=== PATIENT | female | born 1965 | race Caucasian/White ===

== ENCOUNTER 2017-03-13 13:32 | Emergency (ER) | payer MEDICARE ==
[2017-03-13 14:15] LABS: BASOPHIL % 0.1 % (0.0-0.4); Eosinophil % 0.5 % (0.00-5.0); Lymphocytes % 23.2 % (24.0-44.0); Mean Cell Volume 89.1 fl (78-100); Mean Corpuscular Hemoglobin 29.8 pg (26-32); Mean Platelet Volume 10.6 fl (6-9.5); Monocytes % 9.2 % (0.0-12.0); Platelet Count 371 K/mm3 (150-450); Red Blood Count 4.76 M/mm3 (4.1-5.4); Red Cell Distribution Width 13.6 % (11.5-14.0); White Blood Count 12.1 K/mm3 (4.0-10.5)
[2017-03-13] MEDS ORDERED: Vistaril 50 MG/ML IM ONE ×2 (14:16→14:48)
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
[2017-03-13 14:22] LABS: ALBUMIN 4.5 g/dL (3.4-5.0); ANION GAP 18.4 MEQ/L (5-15); BILIRUBIN,TOTAL 0.5 mg/dL (0.2-1.0); MAGNESIUM 2.1 mg/dL (1.8-2.4); Potassium 3.2 mEq/L (3.5-5.1); Total Protein 8.3 gm/dL (6.4-8.2)
[2017-03-13] MEDS ORDERED: Lactated Ringers 1,000 ML IV SCH (14:30)
[2017-03-13] MEDS ORDERED: POTASSIUM CHLORIDE 20 mEq IN WATER 100ML 100 ML IV ONE ×2 (14:36→14:48)
--- NOTE | 2017-03-13 14:43 | XRAY ---
Indication: Numbness and tremors. Hypoglycemia. Multiple contiguous axial images obtained through the head without contrast. Comparison: January 26, 2016. There are again bilateral cochlear implants producing extreme beam artifact limiting these levels. Remaining visualized brain parenchyma is negative for acute intracranial hemorrhage, abnormal extra-axial fluid collection, or mass effect. Fourth ventricle is midline without hydrocephalus. Bony calvarium intact. Visualized paranasal sinuses and mastoid air cells are clear. Impression: 1. Again limited exam due to beam artifact from bilateral cochlear implants. 2. No gross new/acute intracranial abnormalities. CTDI 60.80
--- NOTE | 2017-03-13 14:47 | XRAY ---
Indication: Numbness and tremors. Hyperglycemia. Multiple contiguous axial images obtained through the cervical spine. Sagittal and coronal reformatted images obtained. Comparison: None Axial images are negative for acute fracture, suspicious bony lesions, or spinal canal stenosis. Minimal C5-C7 degenerative endplate spurring. Sagittal and coronal reformatted images demonstrates slight lordotic reversal, positional versus paraspinal muscular spasm. Minimal C6-C7 disc space narrowing. No acute compression fracture, subluxation, or jumped facet. Normal-appearing craniocervical junction. Visualized noncontrasted soft tissues including lung apices are unremarkable. CT head reported separately. Impression: 1. Lordotic reversal, positional versus paraspinal spasm. 2. Minimal C5-C7 degenerative disc disease. 3. Remaining CT cervical spine is negative. CT DI 63.87
[2017-03-13] MEDS ORDERED: Lactated Ringers 1,000 ML IV ONE (14:48)
[2017-03-13 15:58] VITALS: PULSE 81
[2017-03-13 15:59] VITALS: O2SAT 97
[2017-03-13 17:09] VITALS: BP 110/70
== END 2017-03-13 17:08 | disposition home or self-care (01) ==
LOC: ED 13:32
DX: E87.6 Hypokalemia (principal); R25.1 Tremor, unspecified; Z79.899 Other long term (current) drug therapy; R53.83 Other fatigue; M79.1 Myalgia
CPT/HCPCS: 36415; 70450; 72125; 80053; 83735; 85025; 93005; 93041; 96360; 96365; 96374; 99284; J3410; J3480

== ENCOUNTER 2018-06-13 09:34 | Day surgery (SDC) | payer MEDICARE ==
[2018-06-13] MEDS ORDERED: Depo-Medrol 40 MG/ML IM ONE (09:35)
[2018-06-13] MEDS ORDERED: LIDOCAINE HCL 2% 100 MG/5 ML IJ ONE (09:35)
[2018-06-13] MEDS ORDERED: DIPRIVAN 200 MG/20 ML IV ONE (09:35)
[2018-06-13] MEDS ORDERED: Lactated Ringers 1,000 ML IV ONE (10:09)
--- NOTE | 2018-06-13 13:14 | XRAY ---
Indication: Right L4-S1 MBB. Intraoperative fluoroscopy was provided for 15 seconds. Single digital spot image submitted for interpretation demonstrates posterior spinal needle tips projecting over the expected course of the right L4, L5, and S1 nerve roots. Correlate with intraoperative findings/report.
--- NOTE | 2018-06-13 13:35 | XRAY ---
15 seconds fluoroscopy time in surgery for left side L4-S1 injection.
== END 2018-06-13 11:25 | disposition home or self-care (01) ==
LOC: SDC-PAIN 09:34
PROVIDERS: ATTEND Psychiatry & Neurology Pain Medicine
DX: M54.5 Low back pain (principal); M47.816 Spondylosis without myelopathy or radiculopathy, lumbar region
CPT/HCPCS: 64493; 64494; 72100; 76000; J1030; J2704

== ENCOUNTER 2018-07-25 10:08 | Day surgery (SDC) | payer MEDICARE ==
[2018-07-25] MEDS ORDERED: Depo-Medrol 40 MG/ML IM ONE (10:09)
[2018-07-25] MEDS ORDERED: Marcaine 0.5% SDV 10 ML IJ ONE (10:09)
[2018-07-25] MEDS ORDERED: DIPRIVAN 200 MG/20 ML IV ONE (10:09)
[2018-07-25] MEDS ORDERED: LIDOCAINE HCL 2% 100 MG/5 ML IJ ONE (10:09)
[2018-07-25] MEDS ORDERED: Lactated Ringers 1,000 ML IV ONE (12:39)
--- NOTE | 2018-07-25 13:00 | XRAY ---
Indication: Bilateral L4-S1 MBB. Intraoperative fluoroscopy was provided for 6 seconds. Single digital spot image submitted for interpretation demonstrates posterior spinal needle tips along the expected course of the left and right L4-S1 nerve roots. Correlate with intraoperative findings/report.
--- NOTE | 2018-07-25 13:10 | XRAY ---
6 seconds fluoroscopy time in surgery for L4-S1 MBB.
== END 2018-07-25 12:25 | disposition home or self-care (01) ==
LOC: SDC-PAIN 10:08
PROVIDERS: ATTEND Psychiatry & Neurology Pain Medicine
DX: M47.817 Spondylosis without myelopathy or radiculopathy, lumbosacral region (principal)
CPT/HCPCS: 64493; 64494; 72020; 77003; J1030; J2704

== ENCOUNTER 2018-08-29 09:29 | Day surgery (SDC) | payer MEDICARE ==
[2018-08-29] MEDS ORDERED: Xylocaine 1% Vial 30 ML PF IJ ONE (09:30)
[2018-08-29] MEDS ORDERED: Depo-Medrol 40 MG/ML IM ONE (09:30)
[2018-08-29] MEDS ORDERED: Marcaine 0.5% SDV 10 ML IJ ONE (09:30)
[2018-08-29] MEDS ORDERED: DIPRIVAN 200 MG/20 ML IV ONE (09:30)
--- NOTE | 2018-08-29 12:32 | XRAY ---
Indication: Right L4-S1 RFA. Intraoperative fluoroscopy was provided for 29 seconds. 2 digital spot images submitted for interpretation demonstrates posterior spinal needle tips along the expected course of the right L4-S1 nerve roots. Correlate with intraoperative findings/report.
--- NOTE | 2018-08-29 12:38 | XRAY ---
29 seconds fluoroscopy time in surgery for right L4-S1 RFA.
[2018-08-29] MEDS ORDERED: Lactated Ringers 1,000 ML IV ONE (14:47)
== END 2018-08-29 11:55 | disposition home or self-care (01) ==
LOC: SDC-PAIN 09:29
PROVIDERS: ATTEND Psychiatry & Neurology Pain Medicine
DX: M47.817 Spondylosis without myelopathy or radiculopathy, lumbosacral region (principal)
CPT/HCPCS: 64635; 64636; 72020; 77003; J1030; J2001; J2704

== ENCOUNTER 2018-10-10 11:01 | Day surgery (SDC) | payer MEDICARE ==
[2018-10-10] MEDS ORDERED: Depo-Medrol 40 MG/ML IM ONE (11:02)
[2018-10-10] MEDS ORDERED: DIPRIVAN 200 MG/20 ML IV ONE (11:02)
[2018-10-10] MEDS ORDERED: Marcaine 0.5% SDV 10 ML IJ ONE (11:02)
[2018-10-10] MEDS ORDERED: VERSED 5 MG/5 ML ONE (12:57)
[2018-10-10] MEDS ORDERED: TORAdol 30 mg Injection ONE (14:51)
[2018-10-10] MEDS ORDERED: Lactated Ringers 1,000 ML IV ONE (14:59)
--- NOTE | 2018-10-10 16:01 | XRAY ---
Indication: Right greater trochanter and intra-articular injection. Intraoperative fluoroscopy was provided for 23 seconds. 2 digital spot images submitted for interpretation demonstrates needle tip just lateral to the femur head and lateral to the greater trochanter. Small amount of contrast injected for needle tip placement. Correlate with intraoperative findings/report.
--- NOTE | 2018-10-10 16:05 | XRAY ---
23 seconds fluoroscopy time in surgery for right greater trochanter and intra-articular hip joint injections.
== END 2018-10-10 15:07 | disposition home or self-care (01) ==
LOC: SDC-PAIN 11:01
PROVIDERS: ATTEND Psychiatry & Neurology Pain Medicine
DX: M16.10 Unilateral primary osteoarthritis, unspecified hip (principal); Z79.899 Other long term (current) drug therapy
CPT/HCPCS: 20610; 73501; 77002; J1030; J1885; J2250; J2704; Q9966

== ENCOUNTER 2018-11-07 09:17 | Day surgery (SDC) | payer MEDICARE ==
[~2018-11-07 09:17] MED LIST: Lactated Ringers 1,000 ML IV ONE
[2018-11-07] MEDS ORDERED: Depo-Medrol 40 MG/ML IM ONE (09:18)
[2018-11-07] MEDS ORDERED: Xylocaine 1% Vial 30 ML PF IJ ONE (09:18)
[2018-11-07] MEDS ORDERED: Marcaine 0.5% SDV 10 ML IJ ONE (09:18)
[2018-11-07] MEDS ORDERED: DIPRIVAN 200 MG/20 ML IV ONE (09:18)
--- NOTE | 2018-11-07 12:13 | XRAY ---
Indication: Right SI joint injection. Intraoperative fluoroscopy was provided for 8 seconds. 2 digital spot images submitted for interpretation demonstrates posterior needle tip projecting over the inferior right SI joint. Correlate with intraoperative findings/report.
--- NOTE | 2018-11-07 12:16 | XRAY ---
8 seconds fluoroscopy time in surgery for right SI joint injection.
== END 2018-11-07 11:43 | disposition home or self-care (01) ==
LOC: SDC-PAIN 09:17
PROVIDERS: ATTEND Psychiatry & Neurology Pain Medicine
DX: M46.1 Sacroiliitis, not elsewhere classified (principal); Z79.899 Other long term (current) drug therapy
CPT/HCPCS: 72020; 77002; G0260; 27096; J1030; J2001; J2704

== ENCOUNTER 2019-02-06 09:44 | Day surgery (SDC) | payer MEDICARE ==
[2019-02-06] MEDS ORDERED: Depo-Medrol 40 MG/ML IM ONE (09:45)
[2019-02-06] MEDS ORDERED: Marcaine 0.5% SDV 10 ML IJ ONE (09:45)
[2019-02-06] MEDS ORDERED: Ketamine HCl 50 MG/ML IV ONE (09:45)
[2019-02-06] MEDS ORDERED: DIPRIVAN 200 MG/20 ML IV ONE (09:45)
[2019-02-06] MEDS ORDERED: Lactated Ringers 1,000 ML IV ONE (13:07)
--- NOTE | 2019-02-07 14:18 | XRAY ---
Indication: Right trochanter and intra-articular injections. Intraoperative fluoroscopy was provided for 21 seconds. 2 digital spot images submitted for interpretation demonstrates needle tips just lateral to the right femur neck and greater trochanter. Small amount of contrast injected for both needle tip placement. Correlate with intraoperative findings/report.
--- NOTE | 2019-02-07 14:20 | XRAY ---
21 seconds fluoroscopy time in surgery for right intra-articular and greater trochanter injections.
== END 2019-02-06 10:55 | disposition home or self-care (01) ==
LOC: SDC-PAIN 09:44
PROVIDERS: ATTEND Psychiatry & Neurology Pain Medicine
DX: M16.11 Unilateral primary osteoarthritis, right hip (principal); M70.61 Trochanteric bursitis, right hip; I10 Essential (primary) hypertension; E78.00 Pure hypercholesterolemia, unspecified; F41.8 Other specified anxiety disorders
CPT/HCPCS: 20610; 73501; 77002; J1030; J2704; Q9966

== ENCOUNTER 2019-03-06 07:50 | Day surgery (SDC) | payer MEDICARE ==
[2019-03-06] MEDS ORDERED: Depo-Medrol 40 MG/ML IM ONE (07:51)
[2019-03-06] MEDS ORDERED: Marcaine 0.5% SDV 10 ML IJ ONE (07:51)
[2019-03-06] MEDS ORDERED: Xylocaine 1% Vial 30 ML PF IJ ONE (07:51)
[2019-03-06] MEDS ORDERED: DIPRIVAN 200 MG/20 ML IV ONE (09:33)
[2019-03-06] MEDS ORDERED: Ketamine HCl 50 MG/ML ONE (09:34)
--- NOTE | 2019-03-06 10:41 | XRAY ---
Indication: Left L4-S1 RFA. Intraoperative fluoroscopy was provided for 21 seconds. 2 digital spot images submitted for interpretation demonstrates posterior needle tips projecting over the expected course of the left L4-S1 nerve roots. Correlate with intraoperative findings/report.
--- NOTE | 2019-03-06 11:29 | XRAY ---
21 seconds fluoroscopy time in surgery for left L4-S1 RFA.
[2019-03-06] MEDS ORDERED: Lactated Ringers 1,000 ML IV ONE (13:26)
== END 2019-03-06 10:12 | disposition home or self-care (01) ==
LOC: SDC-PAIN 07:50
PROVIDERS: ATTEND Psychiatry & Neurology Pain Medicine
DX: M47.816 Spondylosis without myelopathy or radiculopathy, lumbar region (principal); I10 Essential (primary) hypertension; K21.9 Gastro-esophageal reflux disease without esophagitis; E78.00 Pure hypercholesterolemia, unspecified; F41.8 Other specified anxiety disorders
CPT/HCPCS: 64635; 64636; 72100; 77002; J1030; J2001; J2704

== ENCOUNTER 2019-04-10 12:03 | Day surgery (SDC) | payer MEDICARE ==
[2019-04-10] MEDS ORDERED: Depo-Medrol 40 MG/ML IM ONE (12:04)
[2019-04-10] MEDS ORDERED: Sodium Chloride 0.9(Preservative Free) 10 ML IJ ONE (12:04)
[2019-04-10] MEDS ORDERED: DIPRIVAN 200 MG/20 ML IV ONE (12:59)
[2019-04-10] MEDS ORDERED: Ketamine HCl 50 MG/ML ONE (12:59)
--- NOTE | 2019-04-10 15:00 | XRAY ---
Indication: Right L4-S1 PERLA. Intraoperative fluoroscopy was provided for 26 seconds. 3 digital spot images submitted for interpretation demonstrates posterior needle tips projecting over the expected course of the right L4 and L5 nerve roots. Small amount of contrast injected for needle tip placement. Correlate with intraoperative findings/report.
--- NOTE | 2019-04-10 15:17 | XRAY ---
26 seconds fluoroscopy time in surgery for right L4-S1 transforaminal PERLA.
[2019-04-10] MEDS ORDERED: Lactated Ringers 1,000 ML IV ONE (16:46)
== END 2019-04-10 13:32 | disposition home or self-care (01) ==
LOC: SDC-PAIN 12:03
PROVIDERS: ATTEND Psychiatry & Neurology Pain Medicine
DX: M54.16 Radiculopathy, lumbar region (principal); I10 Essential (primary) hypertension; E78.00 Pure hypercholesterolemia, unspecified; F41.8 Other specified anxiety disorders; Z79.899 Other long term (current) drug therapy
CPT/HCPCS: 64483; 64484; 72100; 77003; J1030; J2704; Q9966

== ENCOUNTER 2019-07-03 12:34 | Day surgery (SDC) | payer MEDICARE ==
[2019-07-03] MEDS ORDERED: Depo-Medrol 40 MG/ML IM ONE (12:35)
[2019-07-03] MEDS ORDERED: Marcaine 0.5% SDV 10 ML IJ ONE (12:35)
[2019-07-03 13:23] LABS: Absolute Neutrophil Ct (ANC) 4.61 (1.4-6.9); BASOPHIL % 0.2 % (0.0-0.4); Basophil (Absolute #) 0.01 (0-0.4); Eosinophil % 0.8 % (0.00-5.0); Eosinophil (Absolute #) 0.05 (0-0.5); Hematocrit 39.9 % (35-47); Hemoglobin 13.5 gm/dl (12.0-16.0); Lymphocyte (Absolute #) 1.46 (1.0-4.6); Lymphocytes % 22.1 % (24.0-44.0); Mean Cell Volume 89.1 fl (78-100); Mean Corpuscular Hemoglobin 30.1 pg (26-32); Mean Corpuscular Hgb Concent. 33.8 g/dl (32-36); Mean Platelet Volume 10.6 fl (6-9.5); Monocyte (Absolute #) 0.48 (0.0-1.3); Monocytes % 7.3 % (0.0-12.0); Neutrophil % 69.6 % (36.0-66.0); Platelet Count 280 K/mm3 (150-450); Red Blood Count 4.48 M/mm3 (4.1-5.4); Red Cell Distribution Width 13.8 % (11.5-14.0); White Blood Count 6.6 K/mm3 (4.0-10.5)
[2019-07-03] MEDS ORDERED: Ketamine HCl 50 MG/ML ONE (13:49)
[2019-07-03] MEDS ORDERED: DIPRIVAN 200 MG/20 ML IV ONE (13:49)
[2019-07-03 14:16] LABS: ALBUMIN 4.8 g/dL (3.5-5.0); ANION GAP 16.2 MEQ/L (5-15); BILIRUBIN,TOTAL 0.5 mg/dL (0.2-1.3); Calcium 10.1 mg/dL (8.4-10.2); Creatinine 1 1.04 mg/dL (0.52-1.04); Potassium 4.3 mmol/L (3.5-5.1); Risk Ratio 4.4; Total Protein 7.9 g/dL (6.3-8.2)
[2019-07-03] MEDS ORDERED: Lactated Ringers 1,000 ML IV ONE (14:35)
--- NOTE | 2019-07-03 16:01 | XRAY ---
Indication: Right SI joint injection. Intraoperative fluoroscopy was provided for 16 seconds. 2 digital spot images submitted for interpretation demonstrates posterior needle tip projecting over the inferior right SI joint. Correlate with intraoperative findings/report.
--- NOTE | 2019-07-03 16:08 | XRAY ---
16 seconds fluoroscopy time in surgery for right SI joint injection.
== END 2019-07-03 14:17 | disposition home or self-care (01) ==
LOC: SDC-PAIN 12:34
PROVIDERS: ATTEND Psychiatry & Neurology Pain Medicine
DX: M46.1 Sacroiliitis, not elsewhere classified (principal); I10 Essential (primary) hypertension; E78.00 Pure hypercholesterolemia, unspecified; Z79.899 Other long term (current) drug therapy; F41.8 Other specified anxiety disorders
CPT/HCPCS: 36415; 72020; 77002; 80053; 80061; 82306; 83721; 85025; G0260; 27096; J1030; J2704

== ENCOUNTER 2019-09-18 14:36 | Day surgery (SDC) | payer MEDICARE ==
[2019-09-18] MEDS ORDERED: Sodium Chloride 0.9(Preservative Free) 10 ML IJ ONE (14:37)
[2019-09-18] MEDS ORDERED: Marcaine 0.5% SDV 10 ML IJ ONE (14:37)
[2019-09-18] MEDS ORDERED: Depo-Medrol 40 MG/ML IM ONE (14:37)
[2019-09-18] MEDS ORDERED: Ketamine HCl 50 MG/ML ONE (15:25)
[2019-09-18] MEDS ORDERED: DIPRIVAN 200 MG/20 ML IV ONE ×2 (15:25→15:35)
[2019-09-18] MEDS ORDERED: TORAdol 30 mg Injection ONE (15:49)
[2019-09-18] MEDS ORDERED: Lactated Ringers 1,000 ML IV ONE (15:57)
--- NOTE | 2019-09-18 17:01 | XRAY ---
Indication: Right L3-S1 transforaminal PERLA. Intraoperative fluoroscopy was provided for 16 seconds. 2 digital spot images submitted for interpretation demonstrates posterior needle tips projecting over the expected course of the right L3 and L4 nerve roots. Small amount of contrast injected for needle tip placement. Correlate with intraoperative findings/report.
--- NOTE | 2019-09-18 17:05 | XRAY ---
Indication: Right trochanter bursa injection. Intraoperative fluoroscopy was provided for 11 seconds. Single digital spot image submitted for interpretation demonstrates needle tip just adjacent to the right greater trochanter. Small amount of contrast injected for needle tip placement. Correlate with intraoperative findings/report.
--- NOTE | 2019-09-18 17:08 | XRAY ---
16 seconds fluoroscopy time in surgery for right L4-L5 transforaminal PERLA.
--- NOTE | 2019-09-18 17:08 | XRAY ---
11 seconds fluoroscopy time in surgery for right greater trochanter bursa injection.
== END 2019-09-18 16:05 | disposition home or self-care (01) ==
LOC: SDC-PAIN 14:36
PROVIDERS: ATTEND Psychiatry & Neurology Pain Medicine
DX: M54.16 Radiculopathy, lumbar region (principal); Z79.899 Other long term (current) drug therapy; I10 Essential (primary) hypertension; E78.00 Pure hypercholesterolemia, unspecified; F41.8 Other specified anxiety disorders
CPT/HCPCS: 20610; 64483; 64484; 72100; 73501; 77002; 77003; J1030; J1885; J2704; Q9966

== ENCOUNTER 2019-10-09 10:34 | Day surgery (SDC) | payer MEDICARE ==
[2019-10-09] MEDS ORDERED: Xylocaine 1% Vial 30 ML PF IJ ONE (10:35)
[2019-10-09] MEDS ORDERED: Decadron 4 MG INJ IV ONE (10:35)
[2019-10-09] MEDS ORDERED: DIPRIVAN 200 MG/20 ML IV ONE (11:15)
[2019-10-09] MEDS ORDERED: Ketamine HCl 50 MG/ML ONE (11:15)
--- NOTE | 2019-10-09 13:11 | XRAY ---
Indication: Right piriformis injection. Intraoperative fluoroscopy was provided for 16 seconds. Single digital spot image submitted for interpretation demonstrates posterior needle tip projecting over the expected right piriformis muscle. Small amount of contrast injected for needle tip placement. Correlate with intraoperative findings/report.
--- NOTE | 2019-10-09 13:13 | XRAY ---
16 seconds fluoroscopy time in surgery for right piriformis muscle injection.
[2019-10-09] MEDS ORDERED: Lactated Ringers 1,000 ML IV ONE (15:40)
== END 2019-10-09 11:40 | disposition home or self-care (01) ==
LOC: SDC-PAIN 10:34
PROVIDERS: ATTEND Psychiatry & Neurology Pain Medicine
DX: M79.18 Myalgia, other site (principal); M54.31 Sciatica, right side; I10 Essential (primary) hypertension; E78.00 Pure hypercholesterolemia, unspecified; F41.8 Other specified anxiety disorders
CPT/HCPCS: 20552; 72020; 77002; J1100; J2001; J2704; Q9966

== ENCOUNTER 2020-02-26 12:30 | Day surgery (SDC) | payer MEDICARE ==
[2020-02-26] MEDS ORDERED: Xylocaine 1% Vial 30 ML PF IJ ONE (12:31)
[2020-02-26] MEDS ORDERED: Sodium Chloride 0.9% 10 ML FLUSH Syringe IJ ONE (12:31)
[2020-02-26] MEDS ORDERED: Depo-Medrol 40 MG/ML IM ONE (12:31)
[2020-02-26] MEDS ORDERED: Versed 2 MG/2 ML Injection ONE ×2 (13:31→13:54)
[2020-02-26] MEDS ORDERED: DIPRIVAN 200 MG/20 ML IV ONE (13:54)
[2020-02-26] MEDS ORDERED: Lactated Ringers 1,000 ML IV ONE (14:55)
--- NOTE | 2020-02-26 14:59 | XRAY ---
Indication: Lumbar PERLA. Intraoperative fluoroscopy was provided for 18 seconds. 2 digital spot images submitted for interpretation demonstrates midline posterior needle tip projecting just posterior to the lumbosacral junction interspace. Small amount of contrast injected for needle tip placement. Correlate with intraoperative findings/report.
--- NOTE | 2020-02-26 16:52 | XRAY ---
18 seconds of fluoroscopy was used in surgery for a lumbar PERLA.
== END 2020-02-26 14:25 | disposition home or self-care (01) ==
LOC: SDC-PAIN 12:30
PROVIDERS: ATTEND Psychiatry & Neurology Pain Medicine
DX: M54.16 Radiculopathy, lumbar region (principal); I10 Essential (primary) hypertension; E78.00 Pure hypercholesterolemia, unspecified; Z79.899 Other long term (current) drug therapy
CPT/HCPCS: 62321; 72100; 77003; J1030; J2001; J2250; J2704; Q9966

== ENCOUNTER 2020-03-25 08:05 | Day surgery (SDC) | payer MEDICARE ==
[2020-03-25] MEDS ORDERED: Depo-Medrol 40 MG/ML IM ONE (08:06)
[2020-03-25] MEDS ORDERED: Marcaine 0.5% SDV 10 ML IJ ONE (08:06)
[2020-03-25] MEDS ORDERED: Xylocaine 1% Vial 30 ML PF IJ ONE (08:06)
[2020-03-25] MEDS ORDERED: DIPRIVAN 200 MG/20 ML IV ONE (08:31)
[2020-03-25] MEDS ORDERED: Ketamine HCl 50 MG/ML ONE (08:33)
--- NOTE | 2020-03-25 11:10 | XRAY ---
Indication: Right hip intra-articular and bursa injection. Intraoperative fluoroscopy was provided for 33 seconds. 2 digital spot images submitted for interpretation demonstrates needle tip projecting just lateral to the right femur neck and second needle tip lateral to greater trochanter. Small amount of contrast injected for both needle tip placement. Correlate with intraoperative findings/report.
--- NOTE | 2020-03-25 11:41 | XRAY ---
33 seconds fluoroscopy time in surgery for right hip injections.
[2020-03-25] MEDS ORDERED: Lactated Ringers 1,000 ML IV ONE (15:47)
== END 2020-03-25 09:36 | disposition home or self-care (01) ==
LOC: SDC-PAIN 08:05
PROVIDERS: ATTEND Psychiatry & Neurology Pain Medicine
DX: M70.61 Trochanteric bursitis, right hip (principal); M16.11 Unilateral primary osteoarthritis, right hip; I10 Essential (primary) hypertension; E78.00 Pure hypercholesterolemia, unspecified; F41.8 Other specified anxiety disorders; Z79.899 Other long term (current) drug therapy
CPT/HCPCS: 20610; 73502; 77002; J1030; J2001; J2704; Q9966

== ENCOUNTER 2020-05-06 11:34 | Day surgery (SDC) | payer MEDICARE ==
[2020-05-06] MEDS ORDERED: Decadron 4 MG INJ IV ONE (11:35)
[2020-05-06] MEDS ORDERED: LIDOCAINE HCL 2% 100 MG/5 ML IJ ONE (11:35)
[2020-05-06] MEDS ORDERED: Ketamine HCl 50 MG/ML ONE (12:35)
[2020-05-06] MEDS ORDERED: Versed 2 MG/2 ML Injection ONE (12:35)
[2020-05-06] MEDS ORDERED: DIPRIVAN 200 MG/20 ML IV ONE (12:35)
[2020-05-06] MEDS ORDERED: MORPHINE SULFATE 10 MG/ML ONE (13:19)
[2020-05-06] MEDS ORDERED: TORAdol 30 mg Injection ONE (13:28)
[2020-05-06] MEDS ORDERED: Lactated Ringers 1,000 ML IV ONE (15:25)
--- NOTE | 2020-05-06 15:51 | XRAY ---
Indication: Right C2-C4 MBB. Intraoperative fluoroscopy was provided for 26 seconds. 2 digital spot images submitted for interpretation demonstrates posterior needle tips projecting over the expected right C2-C4 nerve roots. Correlate with intraoperative findings/report.
--- NOTE | 2020-05-06 17:27 | XRAY ---
26 seconds of fluoroscopy was used in surgery for a right C2-C3 and C3-C4 MBB.
== END 2020-05-06 13:28 | disposition home or self-care (01) ==
LOC: SDC-PAIN 11:34
PROVIDERS: ATTEND Psychiatry & Neurology Pain Medicine
DX: M47.812 Spondylosis without myelopathy or radiculopathy, cervical region (principal); I10 Essential (primary) hypertension; E78.00 Pure hypercholesterolemia, unspecified; F41.8 Other specified anxiety disorders; Z79.899 Other long term (current) drug therapy
CPT/HCPCS: 64490; 64491; 72020; 77002; J1100; J1885; J2250; J2270; J2704

== ENCOUNTER 2020-07-01 09:19 | Day surgery (SDC) | payer MEDICARE ==
[~2020-07-01 09:19] MED LIST changes: +DIPRIVAN 200 MG/20 ML IV ONE; +Ketamine HCl 50 MG/ML ONE; -Lactated Ringers 1,000 ML IV ONE
[2020-07-01] MEDS ORDERED: Depo-Medrol 40 MG/ML IM ONE (09:20)
[2020-07-01] MEDS ORDERED: Sodium Chloride 0.9(Preservative Free) 10 ML IJ ONE (09:20)
[2020-07-01] MEDS ORDERED: BUPIVACAINE 0.5% VIAL IJ ONE (09:20)
[2020-07-01] MEDS ORDERED: TORAdol 30 mg Injection ONE (11:16)
--- NOTE | 2020-07-01 12:12 | XRAY ---
Indication: Right L3-L5 transforaminal PERLA. Intraoperative fluoroscopy was provided for 31 seconds. 4 digital spot images submitted for interpretation demonstrates posterior needle tips projecting over the expected right L4 and L5 nerve roots. Small amount of contrast injected for needle tip placement. Correlate with intraoperative findings/report.
--- NOTE | 2020-07-01 12:24 | XRAY ---
Indication: Right greater trochanter bursa injection. Intraoperative fluoroscopy was provided for 17 seconds. Single digital spot image obtained prone demonstrates needle tip just lateral to the right greater trochanter. Small amount of contrast injected for needle tip placement. Correlate with intraoperative findings/report.
[2020-07-01] MEDS ORDERED: Lactated Ringers 1,000 ML IV ONE (13:48)
--- NOTE | 2020-07-01 16:55 | XRAY ---
31 seconds of fluoroscopy was used in surgery for a right L3-L4, L4-L5 transforaminal PERLA.
--- NOTE | 2020-07-01 17:05 | XRAY ---
17 seconds of fluoroscopy was used in surgery for a right greater trochanteric bursa injection.
== END 2020-07-01 11:22 | disposition home or self-care (01) ==
LOC: SDC-PAIN 09:19
PROVIDERS: ATTEND Psychiatry & Neurology Pain Medicine
DX: M54.16 Radiculopathy, lumbar region (principal); M70.61 Trochanteric bursitis, right hip; E78.00 Pure hypercholesterolemia, unspecified; I10 Essential (primary) hypertension; F41.8 Other specified anxiety disorders; K21.9 Gastro-esophageal reflux disease without esophagitis; Z79.899 Other long term (current) drug therapy
CPT/HCPCS: 20610; 64483; 64484; 72100; 73501; 77002; 77003; J1030; J1885; J2704; Q9966

== ENCOUNTER 2020-09-30 10:12 | Day surgery (SDC) | payer MEDICARE ==
[2020-09-30] MEDS ORDERED: Depo-Medrol 40 MG/ML IM ONE (10:13)
[2020-09-30] MEDS ORDERED: BUPIVACAINE 0.5% VIAL IJ ONE (10:13)
[2020-09-30] MEDS ORDERED: DIPRIVAN 200 MG/20 ML IV ONE (11:40)
[2020-09-30] MEDS ORDERED: Ketamine HCl 50 MG/ML ONE (11:40)
--- NOTE | 2020-09-30 13:26 | XRAY ---
Indication: Right greater trochanter bursa injection. Intraoperative fluoroscopy was provided for 9 seconds. Single digital spot image obtained prone submitted for interpretation demonstrates needle tip projecting just lateral to the right greater trochanter. Small amount of contrast injected for needle tip placement. Correlate with intraoperative findings/report.
--- NOTE | 2020-09-30 13:26 | XRAY ---
Indication: Right SI joint injection. Intraoperative fluoroscopy was provided for 9 seconds. 2 digital spot images submitted for interpretation demonstrates posterior needle tip projecting over the inferior right SI joint. Correlate with intraoperative findings/report.
--- NOTE | 2020-09-30 13:36 | XRAY ---
9 seconds of fluoroscopy was used in surgery for a right greater trochanteric bursa injection.
--- NOTE | 2020-09-30 13:36 | XRAY ---
9 seconds of fluoroscopy was used in surgery for a right SI joint injection.
[2020-09-30] MEDS ORDERED: Lactated Ringers 1,000 ML IV ONE (15:00)
== END 2020-09-30 12:05 | disposition home or self-care (01) ==
LOC: SDC-PAIN 10:12
PROVIDERS: ATTEND Psychiatry & Neurology Pain Medicine
DX: M46.1 Sacroiliitis, not elsewhere classified (principal); M70.61 Trochanteric bursitis, right hip; Z79.899 Other long term (current) drug therapy; I10 Essential (primary) hypertension; E78.00 Pure hypercholesterolemia, unspecified
CPT/HCPCS: 20610; 27096; 72020; 73501; 77002; G0260; J1030; J2704; Q9966

== ENCOUNTER 2020-11-11 10:31 | Day surgery (SDC) | payer MEDICARE ==
[2020-11-11] MEDS ORDERED: Decadron 4 MG INJ IV ONE (10:32)
[2020-11-11] MEDS ORDERED: LIDOCAINE HCL 2% 100 MG/5 ML IJ ONE (10:32)
[2020-11-11] MEDS ORDERED: Ketamine HCl 50 MG/ML ONE (12:36)
[2020-11-11] MEDS ORDERED: DIPRIVAN 200 MG/20 ML IV ONE (12:36)
--- NOTE | 2020-11-11 14:11 | XRAY ---
Indication: Left C2-C4 MBB. Intraoperative fluoroscopy provided for 22 seconds. 2 digital spot images submitted for interpretation demonstrates posterior needle tips projecting over the expected left C2-C4 nerve roots. Correlate with intraoperative findings/report.
--- NOTE | 2020-11-11 14:22 | XRAY ---
22 seconds of fluoroscopy was used in surgery for a left C2-C3 and C3-C4 MBB.
[2020-11-11] MEDS ORDERED: Lactated Ringers 1,000 ML IV ONE (15:05)
== END 2020-11-11 13:07 | disposition home or self-care (01) ==
LOC: SDC-PAIN 10:31
PROVIDERS: ATTEND Psychiatry & Neurology Pain Medicine
DX: M47.812 Spondylosis without myelopathy or radiculopathy, cervical region (principal); F41.9 Anxiety disorder, unspecified; F32.9 Major depressive disorder, single episode, unspecified; I10 Essential (primary) hypertension; E78.5 Hyperlipidemia, unspecified; Z79.899 Other long term (current) drug therapy
CPT/HCPCS: 64490; 64491; 72020; 77002; J1100; J2704

== ENCOUNTER 2020-12-16 10:50 | Day surgery (SDC) | payer MEDICARE ==
[2020-12-16] MEDS ORDERED: Decadron 4 MG INJ IV ONE (10:51)
[2020-12-16] MEDS ORDERED: BUPIVACAINE 0.5% VIAL IJ ONE (10:51)
[2020-12-16] MEDS ORDERED: DIPRIVAN 200 MG/20 ML IV ONE (12:18)
[2020-12-16] MEDS ORDERED: Ketamine HCl 50 MG/ML ONE (12:18)
[2020-12-16] MEDS ORDERED: Lactated Ringers 1,000 ML IV ONE (13:52)
--- NOTE | 2020-12-16 14:10 | XRAY ---
25 seconds fluoroscopy time in surgery for right C2-C 4 MBB.
--- NOTE | 2020-12-16 16:26 | XRAY ---
Indication: Right C2-C4 MBB. Intraoperative fluoroscopy provided for 25 seconds. 3 digital spot images submitted for interpretation demonstrates posterior needle tips projecting over the expected right C2-C4 nerve roots. Correlate with intraoperative findings/report.
== END 2020-12-16 12:48 | disposition home or self-care (01) ==
LOC: SDC-PAIN 10:50
PROVIDERS: ATTEND Psychiatry & Neurology Pain Medicine
DX: M47.812 Spondylosis without myelopathy or radiculopathy, cervical region (principal); F43.10 Post-traumatic stress disorder, unspecified; F41.8 Other specified anxiety disorders; Z79.899 Other long term (current) drug therapy
CPT/HCPCS: 64490; 64491; 72020; 77002; J1100; J2704

== ENCOUNTER 2021-02-24 12:35 | Day surgery (SDC) | payer MEDICARE ==
[2021-02-24] MEDS ORDERED: BUPIVACAINE 0.5% VIAL IJ ONE (12:36)
[2021-02-24] MEDS ORDERED: Depo-Medrol 40 MG/ML IM ONE (12:36)
[2021-02-24] MEDS ORDERED: DIPRIVAN 200 MG/20 ML IV ONE (13:51)
[2021-02-24] MEDS ORDERED: MORPHINE SULFATE 10 MG/ML ONE (14:07)
[2021-02-24] MEDS ORDERED: Lactated Ringers 1,000 ML IV ONE (16:03)
--- NOTE | 2021-02-24 17:01 | XRAY ---
Indication: Right SI joint injection. Intraoperative fluoroscopy provided for 24 seconds. 2 digital spot image submitted for interpretation demonstrate posterior needle tip projecting over the inferior right SI joint. Correlate with intraoperative findings/report.
--- NOTE | 2021-02-24 17:01 | XRAY ---
Indication: Right greater trochanteric bursa injection. Intraoperative fluoroscopy provided for 11 seconds. Single digital spot image obtained prone submitted for interpretation demonstrate needle tip just lateral to the right greater trochanter. Small amount of contrast injected for needle tip placement. Correlate with intraoperative findings/report.
--- NOTE | 2021-02-24 17:04 | XRAY ---
24 seconds of fluoroscopy was used in surgery for a right SI joint injection.
--- NOTE | 2021-02-24 17:14 | XRAY ---
11 seconds of fluoroscopy was used in surgery for a right greater trochanteric bursa injection.
== END 2021-02-24 14:16 | disposition home or self-care (01) ==
LOC: SDC-PAIN 12:35
PROVIDERS: ATTEND Psychiatry & Neurology Pain Medicine
DX: M46.1 Sacroiliitis, not elsewhere classified (principal); M70.61 Trochanteric bursitis, right hip; K21.9 Gastro-esophageal reflux disease without esophagitis; F41.9 Anxiety disorder, unspecified; F32.9 Major depressive disorder, single episode, unspecified; I10 Essential (primary) hypertension; E78.00 Pure hypercholesterolemia, unspecified; Z79.899 Other long term (current) drug therapy
CPT/HCPCS: 20610; 27096; 72020; 73501; 77002; G0260; J1030; J2270; J2704; Q9966

== ENCOUNTER 2021-03-24 12:37 | Day surgery (SDC) | payer MEDICARE ==
[2021-03-24] MEDS ORDERED: Sodium Chloride 0.9(Preservative Free) 10 ML IJ ONE (12:38)
[2021-03-24] MEDS ORDERED: Depo-Medrol 40 MG/ML IM ONE (12:38)
[2021-03-24] MEDS ORDERED: DIPRIVAN 200 MG/20 ML IV ONE (14:40)
[2021-03-24] MEDS ORDERED: TORAdol 30 mg Injection ONE (15:06)
[2021-03-24] MEDS ORDERED: Lactated Ringers 1,000 ML IV ONE (17:32)
--- NOTE | 2021-03-25 08:01 | XRAY ---
29 seconds fluoroscopy time in surgery for right L3-L5 transforaminal PERLA.
== END 2021-03-24 15:06 | disposition home or self-care (01) ==
LOC: SDC-PAIN 12:37
PROVIDERS: ATTEND Psychiatry & Neurology Pain Medicine
DX: M54.16 Radiculopathy, lumbar region (principal); Z79.899 Other long term (current) drug therapy
CPT/HCPCS: 64483; 64484; 72020; 77003; J1030; J1885; J2704; Q9966

== ENCOUNTER 2021-11-29 13:31 | Emergency (ER) | payer MEDICARE ==
[2021-11-29] MEDS ORDERED: Hydromorphone 1 mg/ml Injection IV ONE ×2 (15:21→16:57)
[2021-11-29] MEDS ORDERED: Zofran 4 MG/2 ML VIAL IV ONE (15:21)
[2021-11-29] MEDS ORDERED: Zofran 4 MG/2 ML VIAL ONE (15:23)
[2021-11-29] MEDS ORDERED: Hydromorphone 1 mg/ml Injection ONE ×2 (15:23→16:50)
[2021-11-29 15:29] VITALS: O2SAT 96
[2021-11-29] MEDS ORDERED: ROCEPHIN 1 Gm-D5w 50 ml Bag** 1 G/50 ML IVPB IV STA (15:50)
--- NOTE | 2021-11-29 16:16 | XRAY ---
Indication: Sinus pressure and pain. Comparison: None 4 view paranasal sinuses demonstrates near complete opacification left maxillary sinus. Remaining paranasal sinuses are clear. Incidental bilateral cochlear implants. No bony abnormalities.
[2021-11-29] MEDS ORDERED: ROCEPHIN 1 Gm-D5w 50 ml Bag** 1 G/50 ML IVPB IV ONE (16:20)
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
[2021-11-29 16:58] VITALS: BP 124/81; PULSE 68
== END 2021-11-29 17:07 | disposition home or self-care (01) ==
LOC: ED 13:31
DX: J01.00 Acute maxillary sinusitis, unspecified (principal); I10 Essential (primary) hypertension; H91.03 Ototoxic hearing loss, bilateral; T36 Poisoning by, adverse effect of and underdosing of systemic antibiotics; Z96.21 Cochlear implant status; Z79.891 Long term (current) use of opiate analgesic; Z79.899 Other long term (current) drug therapy
CPT/HCPCS: 36000; 70220; 96374; 96375; 99284; J0696; J1170; J2405

== ENCOUNTER 2022-01-14 05:57 | Day surgery (SDC) | payer MEDICARE ==
[2022-01-14] MEDS: Lactated Ringers 1,000 ML IV SCH (06:35)
[2022-01-14] MEDS ORDERED: Xylocaine-Mpf 2% 5 Ml Vial ONE (07:00)
[2022-01-14] MEDS ORDERED: DIPRIVAN 200 MG/20 ML IV ONE ×3 (07:00→07:21)
[2022-01-14 08:02] VITALS: BP 116/66; O2SAT 97
[2022-01-14 08:10] VITALS: PULSE 74
--- NOTE | 2022-01-14 08:16 | OP ---
SURGERY DATE/TIME: 01/14/2022 0700 PREOPERATIVE DIAGNOSIS: Screening exam and family history of colon polyps. POSTOPERATIVE DIAGNOSES: 1) Small sigmoid colon polyp. 2) Mild sigmoid diverticulosis. PROCEDURE: Colonoscopy with cold forceps biopsy. SURGEON: Dr. Lara. ANESTHESIA: MAC. Medications given by anesthesia department. HISTORY: The patient is a 56-year-old white female presenting now for screening colonoscopy. She reports a large family history of colon polyps. The patient is felt the need to have endoscopic evaluation. She was appraised of the risks of the procedure including the risk of perforation, phlebitis, untoward reaction to medication, bleeding and missed lesions. The patient verbalized her understanding and desired to have the procedure performed. DESCRIPTION OF PROCEDURE: The patient was given the medications by the anesthesia department. She had continuous pulse oximetry, ECG monitoring, intermittent blood pressure monitoring. The patient was placed in the left lateral decubitus position. A digital rectal examination was performed and revealed normal anal sphincter tone and no masses. The flexible Olympus pediatric colonoscope was used to intubate the rectum. A view of the colon was developed sequentially to the cecum. Upon insertion and withdrawal, there was noted a small polyp in the sigmoid colon near the descending colon junction. Cold biopsy forceps were used to destroy the lesion. The patient was also noted to have small venous lakes throughout the colon. There was a large amount of fluid that was suctioned until clear during the procedure. With no other mucosal abnormalities being noted, the scope was removed from the patient who tolerated the procedure well and was sent back to OP recovery in good condition. The prep was noted to be fair to good.
== END 2022-01-14 08:15 | disposition home or self-care (01) ==
LOC: SDC 05:57
PROVIDERS: ATTEND Family Medicine
DX: Z12.11 Encounter for screening for malignant neoplasm of colon (principal); Z09 Encounter for follow-up examination after completed treatment for conditions other than malignant neoplasm; D12.5 Benign neoplasm of sigmoid colon; Z83.71 Family history of colonic polyps; K57.30 Diverticulosis of large intestine without perforation or abscess without bleeding
CPT/HCPCS: J2704

== ENCOUNTER 2022-01-19 15:44 | Day surgery (SDC) | payer MEDICARE ==
[2022-01-19] MEDS ORDERED: BUPIVACAINE 0.5% VIAL IJ ONE (15:45)
[2022-01-19] MEDS ORDERED: Depo-Medrol 40 MG/ML IM ONE (15:45)
[2022-01-19] MEDS ORDERED: DIPRIVAN 200 MG/20 ML IV ONE (18:59)
[2022-01-19] MEDS ORDERED: Lactated Ringers 1,000 ML IV ONE (19:07)
--- NOTE | 2022-01-19 20:41 | XRAY ---
Indication: Bilateral greater trochanter bursa injection. Intraoperative fluoroscopy provided for 23 seconds. 3 digital spot images submitted for interpretation demonstrates needle tip projecting lateral to the left and right greater trochanters. Small amount of contrast injected for both needle tip placement. Correlate with intraoperative findings/report.
--- NOTE | 2022-01-20 08:56 | XRAY ---
23 seconds fluoroscopy time in surgery for injections of the greater trochanter bursas of both hips.
== END 2022-01-19 19:26 | disposition home or self-care (01) ==
LOC: SDC-PAIN 15:44
PROVIDERS: ATTEND Psychiatry & Neurology Pain Medicine
DX: M70.62 Trochanteric bursitis, left hip (principal); M70.61 Trochanteric bursitis, right hip; Z79.899 Other long term (current) drug therapy
CPT/HCPCS: 20610; 73521; 77002; J1030; J2704; Q9966

== ENCOUNTER 2022-02-10 14:48 | Emergency (ER) | payer MEDICARE ==
[2022-02-10 15:03] VITALS: BP 157/79; PULSE 108; O2SAT 99
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
== END 2022-02-10 15:41 | disposition home or self-care (01) ==
LOC: ED 14:48
DX: J32.0 Chronic maxillary sinusitis (principal); H69.81 Other specified disorders of Eustachian tube, right ear; H92.01 Otalgia, right ear; R09.81 Nasal congestion; Z96.21 Cochlear implant status; I10 Essential (primary) hypertension; Z79.891 Long term (current) use of opiate analgesic; Z79.899 Other long term (current) drug therapy
CPT/HCPCS: 99283

== ENCOUNTER 2022-03-16 10:13 | Day surgery (SDC) | payer MEDICARE ==
[2022-03-16] MEDS ORDERED: Marcaine Mpf 0.5% Vial 30 Ml IJ ONE (10:14)
[2022-03-16] MEDS ORDERED: Depo-Medrol 40 MG/ML IM ONE (10:14)
[2022-03-16] MEDS ORDERED: DIPRIVAN 200 MG/20 ML IV ONE (11:48)
[2022-03-16] MEDS ORDERED: Lactated Ringers 1,000 ML IV ONE (14:03)
--- NOTE | 2022-03-16 14:13 | XRAY ---
Indication: Bilateral L4-S1 MBB. Intraoperative fluoroscopy provided for 8 seconds. Single digital spot image submitted for interpretation demonstrates posterior needle tips projecting over the expected left and right L4-S1 nerve roots. Correlate with intraoperative findings/report.
--- NOTE | 2022-03-16 14:54 | XRAY ---
8 seconds fluoroscopy time in surgery for bilateral L4-S1 MBB.
== END 2022-03-16 12:12 | disposition home or self-care (01) ==
LOC: SDC-PAIN 10:13
PROVIDERS: ATTEND Psychiatry & Neurology Pain Medicine
DX: M47.816 Spondylosis without myelopathy or radiculopathy, lumbar region (principal); Z79.899 Other long term (current) drug therapy
CPT/HCPCS: 64493; 64494; 72020; 77002; J1030; J2704

== ENCOUNTER 2022-04-06 13:27 | Day surgery (SDC) | payer MEDICARE ==
[2022-04-06] MEDS ORDERED: LIDOCAINE HCL 2% 100 MG/5 ML IJ ONE (13:28)
[2022-04-06] MEDS ORDERED: XYLOCAINE-MPF 1% 5ML SDV IJ ONE (13:28)
[2022-04-06] MEDS ORDERED: Depo-Medrol 40 MG/ML IM ONE (13:28)
[2022-04-06] MEDS ORDERED: TORAdol 30 mg Injection ONE (15:03)
[2022-04-06] MEDS ORDERED: DIPRIVAN 200 MG/20 ML IV ONE (15:21)
--- NOTE | 2022-04-06 16:29 | XRAY ---
Indication: Right L4-S1 RFA. Intraoperative fluoroscopy provided for 30 seconds. 4 digital spot images submitted for interpretation demonstrates posterior needle tips projecting over the expected right L4-S1 nerve roots. Correlate with intraoperative findings/report.
[2022-04-06] MEDS ORDERED: Lactated Ringers 1,000 ML IV ONE (16:44)
--- NOTE | 2022-04-06 16:49 | XRAY ---
30 seconds of fluoroscopy was used in surgery for a right L4-S1 RFA.
== END 2022-04-06 15:46 | disposition home or self-care (01) ==
LOC: SDC-PAIN 13:27
PROVIDERS: ATTEND Psychiatry & Neurology Pain Medicine
DX: M47.816 Spondylosis without myelopathy or radiculopathy, lumbar region (principal); Z79.899 Other long term (current) drug therapy
CPT/HCPCS: 64635; 64636; 72100; 77002; J1030; J1885; J2704

== ENCOUNTER 2022-05-04 15:35 | Day surgery (SDC) | payer MEDICARE ==
[2022-05-04] MEDS ORDERED: Marcaine Mpf 0.5% Vial 30 Ml IJ ONE (15:36)
[2022-05-04] MEDS ORDERED: Depo-Medrol 40 MG/ML IM ONE (15:36)
[2022-05-04] MEDS ORDERED: Lactated Ringers 1,000 ML IV ONE (16:03)
[2022-05-04] MEDS ORDERED: DIPRIVAN 200 MG/20 ML IV ONE (17:02)
--- NOTE | 2022-05-04 20:12 | XRAY ---
Indication: Right SI joint injection. Intraoperative fluoroscopy provided for 11 seconds. 2 digital spot image submitted for interpretation demonstrates posterior needle tip projecting over the right SI joint. Correlate with intraoperative findings/report.
--- NOTE | 2022-05-05 08:50 | XRAY ---
11 seconds fluoroscopy time in surgery for injection of the right SI joint.
== END 2022-05-04 17:25 | disposition home or self-care (01) ==
LOC: SDC-PAIN 15:35
PROVIDERS: ATTEND Psychiatry & Neurology Pain Medicine
DX: M46.1 Sacroiliitis, not elsewhere classified (principal); Z79.899 Other long term (current) drug therapy
CPT/HCPCS: 27096; 72170; 77002; G0260; J1030; J2704

== ENCOUNTER 2022-05-18 15:23 | Day surgery (SDC) | payer MEDICARE ==
[2022-05-18] MEDS ORDERED: BUPIVACAINE 0.5% VIAL IJ ONE (15:24)
[2022-05-18] MEDS ORDERED: XYLOCAINE-MPF 1% 5ML SDV IJ ONE (15:24)
[2022-05-18] MEDS ORDERED: Depo-Medrol 40 MG/ML IM ONE (15:24)
[2022-05-18] MEDS ORDERED: DIPRIVAN 200 MG/20 ML IV ONE ×2 (16:45→16:54)
[2022-05-18] MEDS ORDERED: Xylocaine-Mpf 2% 5 Ml Vial ONE (16:47)
[2022-05-18] MEDS ORDERED: Lactated Ringers 1,000 ML IV ONE (17:32)
--- NOTE | 2022-05-18 18:46 | XRAY ---
Indication: Left L4-S1 RFA. Intraoperative fluoroscopy provided for 41 seconds. 3 digital spot image submitted for interpretation demonstrates posterior needle tips projecting over the expected left L4-S1 nerve roots. Correlate with intraoperative findings/report.
--- NOTE | 2022-05-19 09:36 | XRAY ---
41 seconds of fluoroscopy was used in surgery for a left L4-S1 RFA.
== END 2022-05-18 17:20 | disposition home or self-care (01) ==
LOC: SDC-PAIN 15:23
PROVIDERS: ATTEND Psychiatry & Neurology Pain Medicine
DX: M47.817 Spondylosis without myelopathy or radiculopathy, lumbosacral region (principal); Z79.899 Other long term (current) drug therapy
CPT/HCPCS: 64635; 64636; 72100; 77002; J1030; J2704

== ENCOUNTER 2022-06-29 09:15 | Day surgery (SDC) | payer MEDICARE ==
[2022-06-29] MEDS ORDERED: Depo-Medrol 40 MG/ML IM ONE (09:16)
[2022-06-29] MEDS ORDERED: Marcaine Mpf 0.5% Vial 30 Ml IJ ONE (09:16)
[2022-06-29] MEDS ORDERED: Xylocaine-Mpf 2% 5 Ml Vial ONE (11:47)
[2022-06-29] MEDS ORDERED: DIPRIVAN 200 MG/20 ML IV ONE (11:47)
[2022-06-29] MEDS ORDERED: Lactated Ringers 1,000 ML IV ONE (12:25)
--- NOTE | 2022-06-29 12:43 | XRAY ---
Indication: Bilateral greater trochanter bursa injections. Intraoperative fluoroscopy provided for 14 seconds. 3 digital spot image submitted for interpretation demonstrates needle tip projecting lateral to the left and right greater trochanters. Small amount of contrast injected for needle tip placement. Correlate with intraoperative findings/report.
--- NOTE | 2022-06-29 12:58 | XRAY ---
14 seconds fluoroscopy time in surgery for bilateral greater trochanter injections.
== END 2022-06-29 12:25 | disposition home or self-care (01) ==
LOC: SDC-PAIN 09:15
PROVIDERS: ATTEND Psychiatry & Neurology Pain Medicine
DX: M70.62 Trochanteric bursitis, left hip (principal); M70.61 Trochanteric bursitis, right hip; Z79.899 Other long term (current) drug therapy
CPT/HCPCS: 20610; 73521; 77002; J1030; J2704; Q9966

== ENCOUNTER 2022-12-21 14:09 | Day surgery (SDC) | payer MEDICARE ==
[2022-12-21] MEDS ORDERED: Decadron 4 MG INJ IV ONE (14:10)
[2022-12-21] MEDS ORDERED: BUPIVACAINE 0.5% VIAL IJ ONE (14:10)
[2022-12-21] MEDS ORDERED: LIDOCAINE HCL 1% 50 MG/5 ML VL PF IJ ONE (14:10)
[2022-12-21] MEDS ORDERED: DIPRIVAN 200 MG/20 ML IV ONE ×2 (16:34→16:44)
[2022-12-21] MEDS ORDERED: Lactated Ringers 1,000 ML IV ONE (17:33)
--- NOTE | 2022-12-21 19:35 | XRAY ---
Indication: Right C2-C4 MBB. Intraoperative fluoroscopy provided for 27 seconds. 2 digital spot images submitted for interpretation demonstrates posterior needle tips projecting over the expected right C2-C4 nerve roots. Correlate with intraoperative findings/report.
--- NOTE | 2022-12-22 08:42 | XRAY ---
27 seconds of fluoroscopy was used in surgery for a right C2-C4 MBB.
== END 2022-12-21 17:10 | disposition home or self-care (01) ==
LOC: SDC-PAIN 14:09
PROVIDERS: ATTEND Psychiatry & Neurology Pain Medicine
DX: M47.812 Spondylosis without myelopathy or radiculopathy, cervical region (principal); Z79.899 Other long term (current) drug therapy
CPT/HCPCS: 64490; 64491; 72040; 77002; J1100; J2001; J2704

== ENCOUNTER 2023-01-11 08:52 | Day surgery (SDC) | payer MEDICARE ==
[2023-01-11] MEDS ORDERED: Decadron 4 MG INJ IV ONE (08:53)
[2023-01-11] MEDS ORDERED: BUPIVACAINE 0.5% VIAL IJ ONE (08:53)
[2023-01-11] MEDS ORDERED: Xylocaine-Mpf 2% 5 Ml Vial ONE (09:54)
[2023-01-11] MEDS ORDERED: DIPRIVAN 200 MG/20 ML IV ONE (09:54)
[2023-01-11] MEDS ORDERED: Lactated Ringers 1,000 ML IV ONE (11:54)
--- NOTE | 2023-01-11 18:12 | XRAY ---
Indication: Left C2-C5 MBB. Intraoperative fluoroscopy provided for 17 seconds. 3 digital spot image submitted for interpretation demonstrates posterior needle tips projecting over the expected left C2-C5 nerve roots. Correlate with intraoperative findings/report.
--- NOTE | 2023-01-11 19:01 | XRAY ---
17 seconds of fluoroscopy was used in surgery for a left C2-C5 MBB.
== END 2023-01-11 10:25 | disposition home or self-care (01) ==
LOC: SDC-PAIN 08:52
PROVIDERS: ATTEND Psychiatry & Neurology Pain Medicine
DX: M47.812 Spondylosis without myelopathy or radiculopathy, cervical region (principal); Z79.899 Other long term (current) drug therapy
CPT/HCPCS: 64490; 64491; 72040; 77002; J1100; J2704

== ENCOUNTER 2023-02-01 07:40 | Day surgery (SDC) | payer MEDICARE ==
[2023-02-01] MEDS ORDERED: BUPIVACAINE 0.5% VIAL IJ ONE (07:41)
[2023-02-01] MEDS ORDERED: LIDOCAINE HCL 1% 50 MG/5 ML VL PF IJ ONE (07:41)
[2023-02-01] MEDS ORDERED: Decadron 4 MG INJ IV ONE (07:41)
[2023-02-01] MEDS ORDERED: Xylocaine-Mpf 2% 5 Ml Vial ONE (08:46)
[2023-02-01] MEDS ORDERED: DIPRIVAN 200 MG/20 ML IV ONE ×2 (08:46→08:57)
--- NOTE | 2023-02-01 09:37 | XRAY ---
Indication: Right C2-C4 RFA. Intraoperative fluoroscopy provided for 44 seconds. 2 digital spot image submitted for interpretation demonstrates posterior needle tips projecting over the expected right C2-C4 nerve roots. Correlate with intraoperative findings/report.
[2023-02-01] MEDS ORDERED: Lactated Ringers 1,000 ML IV ONE (14:44)
== END 2023-02-01 09:30 | disposition home or self-care (01) ==
LOC: SDC-PAIN 07:40
PROVIDERS: ATTEND Psychiatry & Neurology Pain Medicine
DX: M47.812 Spondylosis without myelopathy or radiculopathy, cervical region (principal); Z79.899 Other long term (current) drug therapy
CPT/HCPCS: 64633; 64634; 72040; 77002; J1100; J2001; J2704

== ENCOUNTER 2023-02-08 07:45 | Day surgery (SDC) | payer MEDICARE ==
[2023-02-08] MEDS ORDERED: LIDOCAINE HCL 1% 50 MG/5 ML VL PF IJ ONE (07:46)
[2023-02-08] MEDS ORDERED: Decadron 4 MG INJ IV ONE (07:46)
[2023-02-08] MEDS ORDERED: BUPIVACAINE 0.5% VIAL IJ ONE (07:46)
[2023-02-08] MEDS ORDERED: DIPRIVAN 200 MG/20 ML IV ONE ×2 (08:57→09:07)
[2023-02-08] MEDS ORDERED: Xylocaine-Mpf 2% 5 Ml Vial ONE (08:59)
--- NOTE | 2023-02-08 10:08 | XRAY ---
Indication: Left C2-C4 RFA. Intraoperative fluoroscopy was provided for 28 seconds. 2 digital spot image submitted for interpretation demonstrates posterior needle tips projecting over the expected left C2-C4 nerve roots. Correlate with intraoperative findings/report.
--- NOTE | 2023-02-08 10:11 | XRAY ---
28 seconds of fluoroscopy was used in surgery for a left C2-C4 RFA.
[2023-02-08] MEDS ORDERED: Lactated Ringers 1,000 ML IV ONE (15:12)
== END 2023-02-08 09:40 | disposition home or self-care (01) ==
LOC: SDC-PAIN 07:45
PROVIDERS: ATTEND Psychiatry & Neurology Pain Medicine
DX: M47.812 Spondylosis without myelopathy or radiculopathy, cervical region (principal); Z79.899 Other long term (current) drug therapy
CPT/HCPCS: 64633; 64634; 72040; 77002; J1100; J2001; J2704

== ENCOUNTER 2023-04-06 12:27 | Day surgery (SDC) | payer MEDICARE ==
[2023-04-06] MEDS ORDERED: BUPIVACAINE 0.5% VIAL IJ ONE (12:28)
[2023-04-06] MEDS ORDERED: Depo-Medrol 40 MG/ML IM ONE (12:28)
[2023-04-06] MEDS ORDERED: Versed 2 MG/2 ML Injection ONE (14:02)
[2023-04-06] MEDS ORDERED: DIPRIVAN 200 MG/20 ML IV ONE ×3 (14:35→14:51)
[2023-04-06] MEDS ORDERED: Lactated Ringers 1,000 ML IV ONE (15:37)
--- NOTE | 2023-04-06 16:44 | XRAY ---
Indication: Bilateral hip injection. Intraoperative fluoroscopy provided for 29 seconds. 4 digital spot image submitted for interpretation demonstrates needle tip projecting lateral to the left and right femur neck. Small amount of contrast injected for needle tip placement. Correlate with intraoperative findings/report.
--- NOTE | 2023-04-06 17:03 | XRAY ---
29 seconds of fluoroscopy was used in surgery for a bilateral intra-articular hip injection.
== END 2023-04-06 15:08 | disposition home or self-care (01) ==
LOC: SDC-PAIN 12:27
PROVIDERS: ATTEND Psychiatry & Neurology Pain Medicine
DX: M16.0 Bilateral primary osteoarthritis of hip (principal); Z79.899 Other long term (current) drug therapy
CPT/HCPCS: 20610; 73521; 77002; J1030; J2250; J2704; Q9966

== ENCOUNTER 2023-05-10 15:18 | Day surgery (SDC) | payer MEDICARE ==
[2023-05-10] MEDS ORDERED: Depo-Medrol 40 MG/ML IM ONE (15:19)
[2023-05-10] MEDS ORDERED: BUPIVACAINE 0.5% VIAL IJ ONE (15:19)
[2023-05-10] MEDS ORDERED: DIPRIVAN 200 MG/20 ML IV ONE (17:14)
[2023-05-10] MEDS ORDERED: Xylocaine-Mpf 2% 5 Ml Vial ONE (17:15)
[2023-05-10] MEDS ORDERED: Versed 2 MG/2 ML Injection ONE (17:16)
[2023-05-10] MEDS ORDERED: Lactated Ringers 1,000 ML IV ONE (18:17)
--- NOTE | 2023-05-10 22:45 | XRAY ---
Indication: Bilateral SI joint injection. Intraoperative fluoroscopy provided for 14 seconds. 6 digital spot images submitted for interpretation demonstrates posterior needle tip projecting over the expected left and right SI joint. Correlate with intraoperative findings/report.
--- NOTE | 2023-05-11 09:07 | XRAY ---
14 seconds of fluoroscopy was used in surgery for a bilateral sacroiliac joint injection.
== END 2023-05-10 17:40 | disposition home or self-care (01) ==
LOC: SDC-PAIN 15:18
PROVIDERS: ATTEND Psychiatry & Neurology Pain Medicine
DX: M46.1 Sacroiliitis, not elsewhere classified (principal); Z79.899 Other long term (current) drug therapy
CPT/HCPCS: 01992; 27096; 72202; 77002; G0260; J1030; J2250; J2704

== ENCOUNTER 2023-08-23 09:03 | Day surgery (SDC) | payer MEDICARE ==
[2023-08-23] MEDS ORDERED: Depo-Medrol 40 MG/ML IM ONE (09:04)
[2023-08-23] MEDS ORDERED: BUPIVACAINE 0.5% VIAL IJ ONE (09:04)
[2023-08-23] MEDS ORDERED: Versed 2 MG/2 ML Injection ONE (10:00)
[2023-08-23] MEDS ORDERED: Xylocaine-Mpf 2% 5 Ml Vial ONE (10:39)
[2023-08-23] MEDS ORDERED: DIPRIVAN 200 MG/20 ML IV ONE (10:39)
[2023-08-23] MEDS ORDERED: Amidate 20 MG/10 ML IV ONE (10:50)
[2023-08-23] MEDS ORDERED: MORPHINE SULFATE 2 MG INJ ONE ×2 (10:58→11:14)
--- NOTE | 2023-08-23 11:46 | XRAY ---
Indication: Right hip and greater trochanter bursa injection. Intraoperative fluoroscopy provided for 20 seconds. 2 digital spot images submitted for interpretation demonstrates needle tip lateral to right femur neck. Second needle tip lateral to greater trochanter. Small amount of contrast injected for both needle tip placement. Correlate with intraoperative findings/report.
--- NOTE | 2023-08-23 12:22 | XRAY ---
20 seconds of fluoroscopy was used in surgery for a right intra-articular hip and greater trochanteric bursa injection.
[2023-08-23] MEDS ORDERED: Lactated Ringers 1,000 ML IV ONE (15:30)
== END 2023-08-23 11:35 | disposition home or self-care (01) ==
LOC: SDC-PAIN 09:03
PROVIDERS: ATTEND Psychiatry & Neurology Pain Medicine
DX: M16.11 Unilateral primary osteoarthritis, right hip (principal); M70.61 Trochanteric bursitis, right hip; Z79.899 Other long term (current) drug therapy
CPT/HCPCS: 20610; 73502; 77002; J1030; J2250; J2270; J2704; Q9966

== ENCOUNTER 2023-10-11 13:16 | Day surgery (SDC) | payer MEDICARE ==
[2023-10-11] MEDS ORDERED: XYLOCAINE-MPF 1% 5ML SDV IJ ONE (13:17)
[2023-10-11] MEDS ORDERED: Sodium Chloride 0.9(Preservative Free) 10 ML IJ ONE (13:17)
[2023-10-11] MEDS ORDERED: Decadron 4 MG INJ IV ONE (13:17)
[2023-10-11] MEDS ORDERED: Versed 2 MG/2 ML Injection ONE (16:06)
[2023-10-11] MEDS ORDERED: DIPRIVAN 200 MG/20 ML IV ONE ×2 (16:41→16:48)
[2023-10-11] MEDS ORDERED: Xylocaine-Mpf 2% 5 Ml Vial ONE (16:42)
[2023-10-11] MEDS ORDERED: Lactated Ringers 1,000 ML IV ONE (17:03)
--- NOTE | 2023-10-11 17:04 | XRAY ---
Indication: Right L3-L5 transforaminal PERLA. Intraoperative fluoroscopy provided for 27 seconds. 5 digital spot image submitted for interpretation demonstrates posterior needle tips projecting over the expected right L3 and L4 nerve roots. Small amount of contrast injected for needle tip placement. Correlate with intraoperative findings/report.
--- NOTE | 2023-10-11 17:04 | XRAY ---
Indication: Right piriformis injection. Intraoperative fluoroscopy provided for 12 seconds. Single digital spot image submitted for interpretation demonstrates posterior needle tip projecting over the right piriformis. Small amount of contrast injected for needle tip placement. Correlate with intraoperative findings/report.
[2023-10-11] MEDS ORDERED: TORAdol 30 mg Injection ONE (17:12)
--- NOTE | 2023-10-11 18:38 | XRAY ---
12 seconds of fluoroscopy was used in surgery for a right piriformis injection.
--- NOTE | 2023-10-11 18:38 | XRAY ---
27 seconds of fluoroscopy was used in surgery for a right L3-L5 transforaminal PERLA.
== END 2023-10-11 17:35 | disposition home or self-care (01) ==
LOC: SDC-PAIN 13:16
PROVIDERS: ATTEND Psychiatry & Neurology Pain Medicine
DX: M54.16 Radiculopathy, lumbar region (principal); M79.18 Myalgia, other site
CPT/HCPCS: 64483; 64484; 72100; 72170; 77002; 77003; J1100; J1885; J2250; J2704; Q9966

== ENCOUNTER 2023-11-13 10:11 | Day surgery (SDC) | payer MEDICARE ==
--- NOTE | 2023-11-13 08:47 | HP ---
DATE OF SURGERY: 11/13/2023 HISTORY OF PRESENT ILLNESS: A 58-year-old female had an old CT scan with question of rectal mass, inguinal pelvic adenopathy question of malignancy. She needs colonoscopy first. Likely needs oncologist opinion cancer of advanced disease. The patient did have some bloody stools for six months to a year. No recent colonoscopy. Family history of colorectal cancer in paternal grandmother and paternal uncle. Last colonoscopy years ago. PAST MEDICAL HISTORY: Hypertension, arthritis, migraines, reflux. PAST SURGICAL HISTORY: Cholecystectomy. Carpal tunnel. Hysterectomy. Appendectomy. Cochlear implants. Anal fissure in the past. MEDICATIONS: Flonase, magnesium, Lisinopril, topiramate, omeprazole, cyclobenzaprine, Percocet, oxycodone. ALLERGIES: DAYPRO. GENTAMICIN. PAXIL. TRILEPTAL. FAMILY HISTORY: Dementia. SOCIAL HISTORY: No smoking. Occasional alcohol use. REVIEW OF SYSTEMS: Twelve systems reviewed. No chest pain or palpitations. Other systems negative or noncontributory as above and per preadmission questionnaire. The patient did have abnormal CT with question of rectal mass and pelvic lymphadenopathy. PHYSICAL EXAMINATION: Height 5 feet, 2 inches. BMI 37.68. GENERAL: No acute distress. HEENT: Sclerae nonicteric. EOMI. Oral mucous membranes moist. NECK: No JVD. CHEST: Equal excursion, nonlabored breathing. CVS: Regular rate and rhythm. ABDOMEN: Soft. No peritoneal signs. EXTREMITIES: No significant edema. NEURO: Alert, oriented, moving extremities symmetrically. No gross motor deficits noted. RECTAL: Deferred timed to endoscopy exam. PSYCH: Appropriate mood and affect. SKIN: Dry. IMPRESSION: History of rectal bleeding, history of abnormal CT with question of rectal mass and pelvic adenopathy. Will proceed with colonoscopy first and need for oncology opinion. If the patient's cancer is of advanced disease. Risk of endoscopy explained including but not limited to risk of bleeding or infection, risk of bowel injury or perforation, risk of missed or nondiagnosis or incomplete exam possibly requiring barium enema, other studies or procedures, general risk of anesthesia or sedation, risk of bowel prep. Otherwise, continue medications for headaches, hypertension and reflux. The patient takes naproxen for back and hip problems. Need oncology referral and plan colonoscopy under MAC anesthesia as an outpatient.
[2023-11-13] MEDS ORDERED: Lactated Ringers 1,000 ML IV ONE (10:26)
[2023-11-13] MEDS ORDERED: Lactated Ringers 1,000 ML IV SCH (10:30)
[2023-11-13 10:46] VITALS: RESP 16
[2023-11-13] MEDS ORDERED: DIPRIVAN 200 MG/20 ML IV ONE ×3 (12:36→12:54)
[2023-11-13] MEDS ORDERED: Xylocaine-Mpf 2% 5 Ml Vial ONE (12:36)
[2023-11-13 14:00] VITALS: BP 142/72; PULSE 86; TEMP 98.5; O2SAT 97
--- NOTE | 2023-11-14 09:34 | OP ---
SURGERY DATE/TIME: 11/13/2023 1228 PREOPERATIVE DIAGNOSIS: Abnormal CT scan rectal mass, inguinal pelvic adenopathy. POSTOPERATIVE DIAGNOSES: 1) Large rectal mass extending from anal verge up 9 cm, very large ulcerated friable mass consistent with malignancy, path pending. 2) Small smooth benign appearing polyps sigmoid colon with small raised area of fold ascending colon versus hyperplasia, path pending. 3) Mild diverticulosis left colon. 4) Withdrawal time greater than 15 minutes. 5) ASA Class II. PROCEDURES: 1) Colonoscopy to cecum. 2) Multiple cold biopsies of this rectal mass for path. 3) Cold biopsy ascending colon thickened fold area versus hyperplasia, path pending. 4) Hot biopsy small hyperplastic appearing polyp proximal sigmoid colon. 5) Hot snare polypectomy fairly smooth almost hyperplastic appearing polyp proximal sigmoid colon. 6) Multiple cold biopsies of rectal mass. SURGEON: Dr. Sánchez Herrera M.D. ANESTHESIA: MAC. ESTIMATED BLOOD LOSS: Minimal. INDICATIONS: As noted above. Risks and benefits explained in detail but not limited to and consent obtained. DESCRIPTION OF PROCEDURE AND FINDINGS: NOT DICTATED The scope is withdrawn. Withdrawal time had been more than 15 minutes. The prep was only fair with some liquidy semisolid stool throughout the colon. The patient tolerated the procedure well. Findings discussed with the family or friend out in the waiting area. There were no immediate complications. She is supposed to see an oncologist as she likely has malignancy. I will see her back in the office next week.
== END 2023-11-13 14:15 | disposition home or self-care (01) ==
LOC: SDC 10:11 → EDSTATUS 14:12 → SDC 14:15
PROVIDERS: ATTEND Surgery
DX: C20 Malignant neoplasm of rectum (principal); R93.3 Abnormal findings on diagnostic imaging of other parts of digestive tract; R59.0 Localized enlarged lymph nodes; Z80.0 Family history of malignant neoplasm of digestive organs; K63.5 Polyp of colon; K57.30 Diverticulosis of large intestine without perforation or abscess without bleeding
CPT/HCPCS: J2704

== ENCOUNTER 2023-12-14 17:52 | Emergency (ER) | payer MEDICARE ==
[2023-12-14 18:09] VITALS: TEMP 98.6
[2023-12-14] MEDS ORDERED: Zofran 4 MG/2 ML VIAL ONE (18:45)
[2023-12-14 18:46] LABS: Hematocrit 34.6 % (35-47); Hemoglobin 11.6 g/dL (12.0-16.0); Mean Cell Volume 85.6 fL (78-100); Mean Corpuscular Hemoglobin 28.7 pg (26-32); Mean Corpuscular Hgb Concent. 33.5 g/dL (32-36); Mean Platelet Volume 9.3 fL (7.5-11.0); Platelet Count 230 x10^3/uL (150-450); Red Blood Count 4.04 x10^6/uL (4.1-5.4); Red Cell Distribution Width 13.2 % (11.5-14.0)
[2023-12-14] MEDS ORDERED: SUBLIMAZE 100 MCG/2 ML ONE ×2 (18:46→21:46)
[2023-12-14] MEDS ORDERED: Sodium Chloride 0.9% 1000 ML 1,000 ML ONE ×2 (18:46→20:15)
[2023-12-14] MEDS: SUBLIMAZE 100 MCG/2 ML IV ONE ×2 (18:50→21:55)
[2023-12-14] MEDS: Zofran 4 MG/2 ML VIAL IV ONE (18:50)
[2023-12-14] MEDS: Sodium Chloride 0.9% 1000 ML 1,000 ML IV STA ×2 (18:51→20:18)
[2023-12-14 19:05] LABS: ALBUMIN 3.5 g/dL (3.5-5.0); ANION GAP 13.5 MEQ/L (5-15); BILIRUBIN,TOTAL 0.3 mg/dL (0.2-1.3); Calcium 9.4 mg/dL (8.4-10.2); Creatinine 1 0.7 mg/dL (0.52-1.04); EST GLOMERULAR FILTRATION RATE 100.8 ML/MIN; Potassium 3.6 mmol/L (3.5-5.1); Total Protein 6.5 g/dL (6.3-8.2)
[2023-12-14 19:08] LABS: Basophil 1 % (0.0-1.0); Eosinophil 2 % (0.00-3.0); Lymphocytes 13 % (24-44); Monocyte 7 % (0.0-12.0); Neutrophils 77 % (36.0-66.0); Total Cells Counted 100
[2023-12-14 19:10] LABS: Hypochromia 1+; Platelet Estimate NORMAL (NORMAL); Toxic Granulation 1+
[2023-12-14 20:40] LABS: Appearance Cloudy (Clear); Bacteria Few /HPF (None Seen); Bilirubin Negative (Negative); Blood Negative (Negative); Epithelial Cells None Seen /HPF (None Seen); Glucose, Urine Negative (Negative); Ketones Negative (Negative); Leukocyte Esterase Trace (Negative); Nitrite Negative (Negative); Ph 5.5 (4.6-8.0); Protein,Urine Dip Negative (Negative); RBC 0-2 /HPF (0-5); Specific Gravity >=1.030 (1.005-1.030); Urobilinogen 0.2 mg/dL (0.2)
[2023-12-14 20:43] LABS: ADD URINE CULTURE? YES (NO)
[2023-12-14 22:26] VITALS: O2SAT 96
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
[2023-12-15] MEDS ORDERED: PIPERACILLIN/TAZOBACTAM IV ONE (00:01)
[2023-12-15] MEDS ORDERED: Sodium Chloride 100ML MINI-BAG PLUS 100 ML IV ONE (00:01)
[2023-12-15] MEDS: PIPERACILLIN/TAZOBACTAM 3.375 GM in Sodium Chloride 100ML MINI-BAG PLUS 100 ML IV ONE (00:05)
[2023-12-15 00:23] VITALS: BP 113/76; PULSE 85; RESP 17
--- NOTE | 2023-12-15 09:21 | XRAY ---
Indication: Rectal bleeding and abdominal pain. Known rectal mass with metastasis. Current radiation and immunotherapy. Multiple contiguous axial images obtained through the abdomen and pelvis using 80 cc Isovue 370 contrast. Comparison: October 26, 2023 Lung bases remain clear again with minimal dependent atelectasis. Heart not enlarged. Noncontrasted stomach and bowel loops appear nonobstructed. Grossly stable appearing lobular known malignant rectal mass. Sigmoid colon demonstrates new circumferential wall thickening either post-therapeutic colitis versus bowel decompression. Grossly stable perirectal soft tissue masses again likely metastatic. There remains multiple left iliac chain and left inguinal metastatic lymphadenopathy slightly larger in size and number. Again appendectomy, cholecystotomy, and hysterectomy reported. No free fluid/air. Remaining liver, pancreas, spleen, adrenal glands, kidneys, ureters, bladder, and aorta are unremarkable. No periaortic lymphadenopathy or hepatic metastasis. Osseous structures again intact. No suspicious lytic/blastic lesion. Impression: Grossly stable known malignant rectal mass. New sigmoid bowel wall thickening either post-therapeutic colitis versus bowel decompression. Again perirectal, left pelvic, and left inguinal metastatic lymphadenopathy.
== END 2023-12-15 00:55 | disposition short-term general hospital (02) ==
LOC: ED 17:52
DX: K62.7 Radiation proctitis (principal); Y84.2 Radiological procedure and radiotherapy as the cause of abnormal reaction of the patient, or of later complication, without mention of misadventure at the time of the procedure; K62.5 Hemorrhage of anus and rectum; R53.1 Weakness; R10.2 Pelvic and perineal pain; C20 Malignant neoplasm of rectum; C77.8 Secondary and unspecified malignant neoplasm of lymph nodes of multiple regions; I10 Essential (primary) hypertension; Z79.891 Long term (current) use of opiate analgesic; Z79.899 Other long term (current) drug therapy
CPT/HCPCS: 36000; 36415; 74177; 80053; 81001; 83605; 83690; 85025; 87086; 96360; 96361; 96374; 96375; 96376; 99285; J2405; J3010

== ENCOUNTER 2024-02-14 20:24 | Inpatient (IN) | payer MEDICARE ==
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
[2024-02-14 21:08] LABS: BASOPHIL % 0.5 % (0.0-0.4); Basophil (Absolute #) 0.04 x10^3/uL (0-0.4); Eosinophil (Absolute #) 0 x10^3/uL (0-0.5); Hematocrit 36.3 % (35-47); Hemoglobin 11.4 g/dL (12.0-16.0); IMMATURE GRAN # 0.29 x10^3u/L (0.00-0.03); IMMATURE GRAN % 3.7 % (0.00-0.4); Lymphocytes % 25.3 % (24.0-44.0); Mean Cell Volume 83.6 fL (78-100); Mean Corpuscular Hemoglobin 26.3 pg (26-32); Mean Corpuscular Hgb Concent. 31.4 g/dL (32-36); Mean Platelet Volume 9.4 fL (7.5-11.0); Monocyte (Absolute #) 0.99 x10^3/uL (0.0-1.3); Monocytes % 12.5 % (0.0-12.0); NUCLEATED RBC # 0.04 x10^3u/L (0.00-0.01); NUCLEATED RBC % 0.5 % (0.00-0.1); Platelet Count 123 x10^3/uL (150-450); Red Blood Count 4.34 x10^6/uL (4.1-5.4); Red Cell Distribution Width 16.5 % (11.5-14.0); White Blood Count 7.9 x10^3/uL (4.0-10.5)
[2024-02-14 21:21] LABS: Calcium 8.4 mg/dL (8.4-10.2); Creatinine 1 0.99 mg/dL (0.52-1.04); EST GLOMERULAR FILTRATION RATE 66.5 ML/MIN; Potassium 3.7 mmol/L (3.5-5.1)
[2024-02-14 21:31] LABS: ADD URINE CULTURE? YES (NO); Appearance Turbid (Clear); Bacteria Many /HPF (None Seen); Bilirubin Small (Negative); Blood Large (Negative); Epithelial Cells None Seen /HPF (None Seen); Glucose, Urine Negative (Negative); Ketones Negative (Negative); Leukocyte Esterase Moderate (Negative); Nitrite Positive (Negative); Protein,Urine Dip 300 (Negative); RBC >100 /HPF (0-5); Urobilinogen 0.2 mg/dL (0.2); WBC 21-50 /HPF (0-5)
[2024-02-14] MEDS ORDERED: Zofran 4 MG/2 ML VIAL ONE (21:32)
[2024-02-14] MEDS ORDERED: Hydromorphone 1 mg/ml Injection ONE ×2 (21:33→22:57)
[2024-02-14] MEDS: Zofran 4 MG/2 ML VIAL IV ONE (21:33)
[2024-02-14] MEDS: Hydromorphone 1 mg/ml Injection IV ONE ×2 (21:33→22:57)
[2024-02-14] MEDS ORDERED: ROCEPHIN 1 GM / 100 ML NaCl 1 GM/100 ML IVPB IV ONE (21:36)
[2024-02-14] MEDS: ROCEPHIN 1 GM / 100 ML NaCl 1 GM/100 ML IVPB IV ONE (21:38)
[2024-02-14] MEDS ORDERED: Sodium Chloride 0.9% 1000 ML 1,000 ML ONE (21:42)
[2024-02-14] MEDS: Sodium Chloride 0.9% 1000 ML 1,000 ML IV SCH (21:42)
[2024-02-14] MEDS ORDERED: FLAGYL 500 MG IVPB 500 MG/100 ML BAG IV ONE (22:20)
[2024-02-14] MEDS: FLAGYL 500 MG IVPB 500 MG/100 ML BAG IV STA (22:24)
[2024-02-14] MEDS ORDERED: PYRIDIUM 200 MG ONE (23:12)
[2024-02-14] MEDS: PYRIDIUM 200 MG PO ONE (23:13)
[2024-02-14] MEDS ORDERED: Hydromorphone 1 mg/ml Injection IV PRN (23:54)
[2024-02-14] MEDS ORDERED: TYLENOL 325 MG PO PRN (23:54)
[2024-02-15] MEDS ORDERED: Ms Contin 15 MG PO ONE (00:55)
[2024-02-15] MEDS: Ms Contin 15 MG PO ONE (01:02)
[2024-02-15] MEDS ORDERED: ULTRAM 50 MG PO PRN (01:49)
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
[2024-02-15] MEDS ORDERED: PIPERACILLIN/TAZOBACTAM IV ONE (02:14)
[2024-02-15] MEDS ORDERED: Sodium Chloride 100ML MINI-BAG PLUS 100 ML IV ONE (02:16)
[2024-02-15] MEDS: PIPERACILLIN/TAZOBACTAM 3.375 GM in Sodium Chloride 100ML MINI-BAG PLUS 100 ML IV SCH (02:25)
[2024-02-15] MEDS: Hydromorphone 1 mg/ml Injection IV PRN (02:30)
[2024-02-15] MEDS: Sodium Chloride 0.9% 1000 ML 1,000 ML IV SCH (02:37)
[2024-02-15] MEDS: MORPHINE SULFATE ER PO ONE (02:51)
[2024-02-15] MEDS: FENTANYL 12 MCG TOP SCH (03:15)
[2024-02-15] MEDS: MORPHINE SULFATE 4 MG INJ IV ONE (03:50)
[2024-02-15 04:53] LABS: Absolute Neutrophil Ct (ANC) 4.62 x10^3/uL (1.4-6.9); BASOPHIL % 0.3 % (0.0-0.4); Basophil (Absolute #) 0.02 x10^3/uL (0-0.4); Eosinophil % 0.1 % (0.00-5.0); Eosinophil (Absolute #) 0.01 x10^3/uL (0-0.5); IMMATURE GRAN # 0.21 x10^3u/L (0.00-0.03); IMMATURE GRAN % 2.7 % (0.00-0.4); Lymphocyte (Absolute #) 1.85 x10^3/uL (1.0-4.6); Mean Cell Volume 79.8 fL (78-100); Mean Corpuscular Hemoglobin 26.6 pg (26-32); Mean Corpuscular Hgb Concent. 33.3 g/dL (32-36); Mean Platelet Volume 9.4 fL (7.5-11.0); Monocyte (Absolute #) 1.01 x10^3/uL (0.0-1.3); Monocytes % 13.1 % (0.0-12.0); Neutrophil % 59.8 % (36.0-66.0); Platelet Count 117 x10^3/uL (150-450); Red Blood Count 3.76 x10^6/uL (4.1-5.4); Red Cell Distribution Width 16.2 % (11.5-14.0); White Blood Count 7.7 x10^3/uL (4.0-10.5)
[2024-02-15 05:39] LABS: ANION GAP 12.5 MEQ/L (5-15); BILIRUBIN,TOTAL 0.7 mg/dL (0.2-1.3); Calcium 7.9 mg/dL (8.4-10.2); Creatinine 1 0.95 mg/dL (0.52-1.04); EST GLOMERULAR FILTRATION RATE 69.9 ML/MIN; Potassium 3.6 mmol/L (3.5-5.1)
--- NOTE | 2024-02-15 07:18 | XRAY ---
Indication: Gross hematuria. Multiple contiguous axial images obtained through the abdomen and pelvis without contrast. History colon cancer with chemotherapy. Comparison: December 14, 2023 Lung bases again demonstrates mild bibasilar subsegmental atelectasis/scarring. No infiltrate or effusion. Heart not enlarged. Noncontrasted stomach and bowel loops appear nonobstructed. Colon now demonstrates more diffuse circumferential wall thickening throughout favoring colitis. New tiny abdominal and pelvic free fluid presumed reactive. No walled off fluid collection or free air. Previous rectal mass appears much smaller presumed response to chemotherapy. Previous perirectal, left pelvic, and bilateral inguinal lymph nodes are also smaller. Again appendectomy, cholecystectomy, and hysterectomy. Remaining liver, pancreas, spleen, adrenal glands, kidneys, ureters, bladder, and aorta are unremarkable for noncontrast exam. Osseous structures intact again with minimal degenerative changes throughout the spine and mild degenerative changes both hips. No suspicious bony lesions. Impression: 1. Worsening diffuse colitis. Tiny abdominal/pelvic free fluid presumed reactive. No walled off fluid collection or free air. 2. Smaller rectal mass and diminished lymphadenopathy all presumed in response to chemotherapy. 3. Chronic bony findings including multilevel degenerative spondylosis and bilateral hip degenerative arthropathy.
[2024-02-15] MEDS ORDERED: Narcan 0.4 MG/ML IV PRN (07:30)
[2024-02-15] MEDS ORDERED: NON-FORMULARY ITEM (Omeprazole [Omeprazole] 40 MG Capsule.Dr) PO SCH (10:00)
[2024-02-15] MEDS ORDERED: MORPHINE SULFATE ER PO SCH (10:00)
[2024-02-15] MEDS ORDERED: NON-FORMULARY ITEM (Topiramate 100 Mg*** [Topamax 100 Mg***] 100 MG Tablet) PO SCH (10:00)
--- NOTE | 2024-02-15 10:07 | PCM.NOTE ---
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 She is a patient of primary care provider Dr. Lara and tripper/oncologist Dr. Veliz out of [facility], and who presented to the emergency department after receiving a phone call that her sodium level was 124. The blood was drawn prior to her chemotherapy treatment. It was taken from the port that she has in place. Per review of prior lab results, the patient's most recent sodium level at our institution which was drawn on 12/14/2023 and that was 134, and dating back to 2012 the lowest she ever was was 132. The patient has a diagnosis of her colon cancer (malignant melanoma of the anus) for which she is receiving chemotherapy (immunoglobulin therapy) treatment. The patient also has a history of chronic pain syndrome (follows Stephani Schwartz NP), gastroesophageal reflux disease, hypertension, arthritis, degenerative disc disease, anxiety disorder and PTSD. In the ED, she complained of bladder fullness and lower abdominal pain, and requested bladder catheterization for a urine sample, which demonstrated evidence of a probable UTI. CT of the abdomen demonstrated probable colitis.Today she continues to have hematuria. She is being treated with Zosyn for UTI and colitis. Bladder scan this am showed about 20 ml in bladder post void. She is getting quite a bit of pain meds d/t, Narcan added PRN. Nephrology consulted as sodium remains ar 122 despite IV fluids. Pt denies CP, SOB, N/V/D. - Review of Systems Constitutional: No Fever, No Chills Eyes: No Symptoms Ears, Nose, & Throat: No Symptoms Respiratory: No Cough, No Short Of Breath Cardiac: No Chest Pain, No Edema, No Syncope Abdominal/Gastrointestinal: Abdominal Pain, No Nausea, No Vomiting, No Diarrhea Genitourinary Symptoms: Hematuria, No Dysuria Musculoskeletal: No Back Pain, No Neck Pain Skin: No Rash Neurological: No Dizziness, No Focal Weakness, No Sensory Changes Psychological: No Symptoms Endocrine: No Symptoms Hematologic/Lymphatic: No Symptoms Immunological/Allergic: No Symptoms Objective Exam General Appearance: no apparent distress, alert, obese Neurologic Exam: alert, oriented x 3, cooperative, normal mood/affect, nml cerebellar function, sensation nml, No motor deficits Skin Exam: normal color, warm, dry Eye Exam: PERRL, EOMI, eyes nml inspection Ears, Nose, Throat Exam: normal ENT inspection, pharynx normal, moist mucous membranes Neck Exam: normal inspection, non-tender, supple, full range of motion Respiratory Exam: normal breath sounds, lungs clear, No respiratory distress Cardiovascular Exam: regular rate/rhythm, normal heart sounds Gastrointestinal/Abdomen Exam: soft, tenderness (generalized with palpation), No mass Extremity Exam: normal inspection, normal range of motion Back Exam: normal inspection, normal range of motion, No CVA tenderness, No vertebral tenderness Pelvic Exam: deferred Rectal Exam: deferred Objective Data Vital Signs: Vital Signs - 24 hr Temp Pulse Resp BP BP Pulse Ox 02/15/24 07:46 98.4 F 96 H 20 130/61 94 L 02/15/24 04:00 97.5 F 91 H 20 118/60 94 L 02/15/24 01:00 97.1 F 90 18 121/64 99 02/14/24 23:00 93 H 113/73 98 02/14/24 22:00 90 18 113/67 96 02/14/24 21:30 91 H 17 122/55 96 02/14/24 21:25 93 H 12 122/55 95 02/14/24 20:33 98 F 97 H 14 118/88 99 Pain Assessment - Last Documented Pain Intensity 10 Pain Scale Used 0-10 Pain Scale Intake and Output: Intake & Output 02/12/24 02/13/24 02/14/24 02/15/24 11:59 11:59 11:59 11:59 Intake Total 837 Output Total 400 Balance 437 Weight 90.1 kg Lab Results: Lab Results-Last 24 Hours 02/14/24 02/14/24 02/14/24 Range/Units 21:00 21:00 21:06 WBC 7.9 (4.0-10.5) x10^3/uL RBC 4.34 (4.1-5.4) x10^6/uL Hgb 11.4 L (12.0-16.0) g/dL Hct 36.3 (35-47) % MCV 83.6 (78-100) fL MCH 26.3 (26-32) pg MCHC 31.4 L (32-36) g/dL RDW 16.5 H (11.5-14.0) % Plt Count 123 L (150-450) x10^3/uL MPV 9.4 (7.5-11.0) fL Gran % 58.0 (36.0-66.0) % Immature Gran % (Auto) 3.7 H (0.00-0.4) % Nucleat RBC Rel Count 0.5 H (0.00-0.1) % Eos # (Auto) 0 (0-0.5) x10^3/uL Immature Gran # (Auto) 0.29 H (0.00-0.03) x10^3u/L Absolute Lymphs (auto) 2.00 (1.0-4.6) x10^3/uL Absolute Monos (auto) 0.99 (0.0-1.3) x10^3/uL Absolute Nucleated RBC 0.04 H (0.00-0.01) x10^3u/L Lymphocytes % 25.3 (24.0-44.0) % Monocytes % 12.5 H (0.0-12.0) % Eosinophils % 0.0 (0.00-5.0) % Basophils % 0.5 (0.0-0.4) % Absolute Granulocytes 4.60 (1.4-6.9) x10^3/uL Basophils # 0.04 (0-0.4) x10^3/uL Sodium 121 L (135-145) mmol/L Potassium 3.7 (3.5-5.1) mmol/L Chloride 92 L (98-107) mmol/L Carbon Dioxide 19 L (22-30) mmol/L Anion Gap 14.0 (5-15) MEQ/L BUN 24 H (7-17) mg/dL Creatinine 0.99 (0.52-1.04) mg/dL Estimated GFR 66.5 ML/MIN Glucose 103 (74-106) mg/dL Calcium 8.4 (8.4-10.2) mg/dL Total Bilirubin (0.2-1.3) mg/dL AST (14-36) U/L ALT (0-35) U/L Alkaline Phosphatase (38-126) U/L Serum Total Protein (6.3-8.2) g/dL Albumin (3.5-5.0) g/dL Urine Color Red A (Yellow) Urine Appearance Turbid A (Clear) Urine pH 5.0 (4.6-8.0) Ur Specific [place] 1.020 (1.005-1.030) Urine Protein 300 A (Negative) Urine Glucose (UA) Negative (Negative) mg/dL Urine Ketones Negative (Negative) Urine Blood Large A (Negative) Urine Nitrite Positive A (Negative) Urine Bilirubin Small A (Negative) Urine Urobilinogen 0.2 (0.2) mg/dL Ur Leukocyte Esterase Moderate A (Negative) U Hyaline Cast (Auto) 3-5 A (0-2) /LPF Urine Microscopic RBC >100 A (0-5) /HPF Urine Microscopic WBC 21-50 A (0-5) /HPF Ur Epithelial Cells None Seen (None Seen) /HPF Urine Bacteria Many A (None Seen) /HPF Urine Culture Reflexed YES (NO) Urine Sodium (30-90) mmol/L 02/14/24 02/15/24 02/15/24 Range/Units 21:06 04:30 04:42 WBC 7.7 (4.0-10.5) x10^3/uL RBC 3.76 L (4.1-5.4) x10^6/uL Hgb 10.0 L (12.0-16.0) g/dL Hct 30.0 L (35-47) % MCV 79.8 (78-100) fL MCH 26.6 (26-32) pg MCHC 33.3 (32-36) g/dL RDW 16.2 H (11.5-14.0) % Plt Count 117 L (150-450) x10^3/uL MPV 9.4 (7.5-11.0) fL Gran % 59.8 (36.0-66.0) % Immature Gran % (Auto) 2.7 H (0.00-0.4) % Nucleat RBC Rel Count 0.0 (0.00-0.1) % Eos # (Auto) 0.01 (0-0.5) x10^3/uL Immature Gran # (Auto) 0.21 H (0.00-0.03) x10^3u/L Absolute Lymphs (auto) 1.85 (1.0-4.6) x10^3/uL Absolute Monos (auto) 1.01 (0.0-1.3) x10^3/uL Absolute Nucleated RBC 0.00 (0.00-0.01) x10^3u/L Lymphocytes % 24.0 (24.0-44.0) % Monocytes % 13.1 H (0.0-12.0) % Eosinophils % 0.1 (0.00-5.0) % Basophils % 0.3 (0.0-0.4) % Absolute Granulocytes 4.62 (1.4-6.9) x10^3/uL Basophils # 0.02 (0-0.4) x10^3/uL Sodium 122 L (135-145) mmol/L Potassium 3.6 (3.5-5.1) mmol/L Chloride 96 L (98-107) mmol/L Carbon Dioxide 18 L (22-30) mmol/L Anion Gap 12.5 (5-15) MEQ/L BUN 21 H (7-17) mg/dL Creatinine 0.95 (0.52-1.04) mg/dL Estimated GFR 69.9 ML/MIN Glucose 109 H (74-106) mg/dL Calcium 7.9 L (8.4-10.2) mg/dL Total Bilirubin 0.70 (0.2-1.3) mg/dL AST 32 (14-36) U/L ALT 22 (0-35) U/L Alkaline Phosphatase 137 H (38-126) U/L Serum Total Protein 6.0 L (6.3-8.2) g/dL Albumin 3.0 L (3.5-5.0) g/dL Urine Color (Yellow) Urine Appearance (Clear) Urine pH (4.6-8.0) Ur Specific [place] (1.005-1.030) Urine Protein (Negative) Urine Glucose (UA) (Negative) mg/dL Urine Ketones (Negative) Urine Blood (Negative) Urine Nitrite (Negative) Urine Bilirubin (Negative) Urine Urobilinogen (0.2) mg/dL Ur Leukocyte Esterase (Negative) U Hyaline Cast (Auto) (0-2) /LPF Urine Microscopic RBC (0-5) /HPF Urine Microscopic WBC (0-5) /HPF Ur Epithelial Cells (None Seen) /HPF Urine Bacteria (None Seen) /HPF Urine Culture Reflexed (NO) Urine Sodium 11 L (30-90) mmol/L Radiology Exams: Radiology Procedures Category Date Time Status ABDOMEN AND PELVIS W/0 CONTRAS [CT] Stat Exams 02/14/24 20:59 Completed Assessment/Plan (1) UTI (urinary tract infection) Current Visit: Yes Status: Acute Assessment & Plan: - zosyn iv - UC pending Code(s): N39.0 - URINARY TRACT INFECTION, SITE NOT SPECIFIED (2) Hyponatremia Current Visit: Yes Status: Acute Assessment & Plan: - Na+ on admission 121, today 122 - NS @ 100ml/hr - nephrology consulted - likely 2:2 cancer - No fluid restriction as pt not eating and drinking well Code(s): E87.1 - HYPO-OSMOLALITY AND HYPONATREMIA (3) Rectal cancer Current Visit: Yes Status: Acute Assessment & Plan: - Follows Dr. Sharp - adds to complexity - Currently receiving chemo and radiation Code(s): C20 - MALIGNANT NEOPLASM OF RECTUM (4) Colitis Current Visit: Yes Status: Acute Assessment & Plan: - as Seen on CT abd - Zosyn, IVF - pain meds - denies diarrhea Code(s): K52.9 - NONINFECTIVE GASTROENTERITIS AND COLITIS, UNSPECIFIED (5) Gross hematuria Current Visit: Yes Status: Acute Assessment & Plan: - US bladder and kidneys - 2:2 UTI? - Hgb stable 10.0- trend (6) Suprapubic abdominal pain Current Visit: Yes Status: Acute Assessment & Plan: - CT abd. 02/14/24 Impression: 1. Worsening diffuse colitis. Tiny abdominal/pelvic free fluid presumed reactive. No walled off fluid collection or free air. 2. Smaller rectal mass and diminished lymphadenopathy all presumed in response to chemotherapy. 3. Chronic bony findings including multilevel degenerative spondylosis and bilateral hip degenerative arthropathy. - Continue OP pain meds Code(s): R10.2 - PELVIC AND PERINEAL PAIN (7) Chronic pain disorder Current Visit: No Status: Chronic Assessment & Plan: - Continue home pain meds - narcan PRN resp depression Code(s): G89.4 - CHRONIC PAIN SYNDROME (8) Obesity (BMI 30-39.9) Current Visit: Yes Status: Chronic Assessment & Plan: - advised diet and exercise control Code(s): E66.9 - OBESITY, UNSPECIFIED (9) Deaf Current Visit: Yes Status: Chronic Assessment & Plan: - chronic wears choclear implants- batteries currently - adds to complexity VTE: SCD's PPI: Protonix Next of KIN: Sally Aaron [phone] D/C plan: 2-3 days Code status: Full Code(s): H91.90 - UNSPECIFIED HEARING LOSS, UNSPECIFIED EAR
[2024-02-15] MEDS: Protonix 40MG Tablet PO SCH (10:35)
[2024-02-15] MEDS: Cyclobenzaprine 10 MG PO SCH (10:35)
[2024-02-15] MEDS: MOTRIN 600 MG PO PRN (10:35)
[2024-02-15] MEDS: TOPIRAMATE PO SCH (10:35)
[2024-02-15] MEDS: Ms Contin 15 MG PO SCH (10:35)
[2024-02-15] MEDS: Acidophilus TABLET PO SCH (10:35)
--- NOTE | 2024-02-15 16:09 | XRAY ---
Indication: Hematuria. History of rectal carcinoma. Two-dimensional renal sonogram performed. Comparison: None Both kidneys are normal in reniform shape with normal color perfusion. Right kidney measures 13.2 x 5.5 x 5.2 cm and left measures 13.1 x 7.2 x 5.5 cm. No focal solid/cystic renal mass or hydronephrosis. Left kidney demonstrates mild pelvocaliectasis, nonspecific finding. Cortical measured differentiation preserved. Minimally distended urinary bladder is grossly unremarkable. Ureteral jets not seen within the allotted exam time. Impression: Nonspecific left renal pelvocaliectasis. Remaining renal sonogram is negative.
[2024-02-16 04:49] LABS: Hematocrit 31.4 % (34.1-44.9); Hemoglobin 10.1 g/dL (11.2-15.7); Mean Cell Volume 81.1 fL (79.4-94.8); Mean Corpuscular Hemoglobin 26.1 pg (25.6-32.2); Mean Corpuscular Hgb Concent. 32.2 g/dL (32.2-35.5); Mean Platelet Volume 9.7 fL (9.4-12.3); Platelet Count 103 x10^3/uL (182-369); Red Blood Count 3.87 x10^6/uL (3.93-5.22); Red Cell Distribution Width 16.8 % (11.7-14.4); White Blood Count 8.1 x10^3/uL (3.98-10.04)
[2024-02-16 05:23] LABS: ANION GAP 13.3 MEQ/L (5-15); BILIRUBIN,TOTAL 0.8 mg/dL (0.2-1.3); Calcium 7.5 mg/dL (8.4-10.2); Creatinine 1 1.4 mg/dL (0.52-1.04); EST GLOMERULAR FILTRATION RATE 43.9 ML/MIN; Potassium 3.6 mmol/L (3.5-5.1); Total Protein 5.9 g/dL (6.3-8.2)
[2024-02-16] MEDS: Tums EX 750 MG PO SCH (10:08)
[2024-02-16] MEDS: TOLVAPTAN PO SCH (10:09)
[2024-02-16] MEDS: SODIUM BICARBONATE PO SCH (10:09)
--- NOTE | 2024-02-16 10:53 | PCM.NOTE ---
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 She is a patient of primary care provider Dr. Lara and interior design assistant/oncologist Dr. Veliz out of [facility], and who presented to the emergency department after receiving a phone call that her sodium level was 124. The blood was drawn prior to her chemotherapy treatment. It was taken from the port that she has in place. Per review of prior lab results, the patient's most recent sodium level at our institution which was drawn on 12/14/2023 and that was 134, and dating back to 2012 the lowest she ever was was 132. The patient has a diagnosis of her colon cancer (malignant melanoma of the anus) for which she is receiving chemotherapy (immunoglobulin therapy) treatment. The patient also has a history of chronic pain syndrome (follows Stephani Schwartz NP), gastroesophageal reflux disease, hypertension, arthritis, degenerative disc disease, anxiety disorder and PTSD. In the ED, she complained of bladder fullness and lower abdominal pain, and requested bladder catheterization for a urine sample, which demonstrated evidence of a probable UTI. CT of the abdomen demonstrated probable colitis.Today she continues to have hematuria. She is being treated with Zosyn for UTI and colitis. Bladder scan this am showed about 20 ml in bladder post void. She is getting quite a bit of pain meds d/t, Narcan added PRN. Nephrology consulted as sodium remains ar 122 despite IV fluids. Pt denies CP, SOB, N/V/D. 02/16/24 Pt resting in bed. She reports she had a bloody stool last night with diarrhea x1. Hgb stable 10.1. Oncology called and added labs this morning. She explains blood in urine improved. Na+ 126- improved- Samsca started. Awaiting nephrology recommendations. Will keep Zosyn for colitis. UC negative for UTI. US of abd showed nonspecific left renal pelvocaliectasis. She will need OP f/u with urology. Pt denies CP, SOB, abd. pain, N/V. She reports she is feeling better today. - Review of Systems Constitutional: No Fever, No Chills Eyes: No Symptoms Ears, Nose, & Throat: No Symptoms Respiratory: No Cough, No Short Of Breath Cardiac: No Chest Pain, No Edema, No Syncope Abdominal/Gastrointestinal: Diarrhea (x1 with blood in stool last night), No Abdominal Pain, No Nausea, No Vomiting Genitourinary Symptoms: No Dysuria Musculoskeletal: No Back Pain, No Neck Pain Skin: No Rash Neurological: No Dizziness, No Focal Weakness, No Sensory Changes Psychological: No Symptoms Endocrine: No Symptoms Hematologic/Lymphatic: No Symptoms Immunological/Allergic: No Symptoms Objective Exam General Appearance: no apparent distress, alert Neurologic Exam: alert, oriented x 3, cooperative, normal mood/affect, nml cerebellar function, sensation nml, No motor deficits Skin Exam: normal color, warm, dry Eye Exam: PERRL, EOMI, eyes nml inspection Ears, Nose, Throat Exam: normal ENT inspection, pharynx normal, moist mucous m embranes Neck Exam: normal inspection, non-tender, supple, full range of motion Respiratory Exam: normal breath sounds, lungs clear, No respiratory distress Cardiovascular Exam: regular rate/rhythm, normal heart sounds, normal peripheral pulses, edema (non-pitting BLLE) Gastrointestinal/Abdomen Exam: soft, No tenderness, No mass Extremity Exam: normal inspection, normal range of motion Back Exam: normal inspection, normal range of motion, No CVA tenderness, No vertebral tenderness Pelvic Exam: deferred Rectal Exam: deferred Objective Data Vital Signs: Vital Signs - 24 hr Temp Pulse Resp BP Pulse Ox 02/16/24 08:00 16 02/16/24 07:07 97.9 F 89 13 108/65 97 02/16/24 04:00 97.0 F 82 20 98/59 96 02/16/24 00:00 16 02/15/24 23:41 97.7 F 86 18 96/66 95 02/15/24 20:00 18 02/15/24 19:38 97.6 F 84 18 96/55 93 L 02/15/24 16:00 18 02/15/24 15:38 97.3 F 76 18 105/59 97 02/15/24 12:00 19 02/15/24 11:26 97.5 F 85 18 118/64 95 Pain Assessment - Last Documented Pain Intensity 3 Pain Scale Used 0-10 Pain Scale Intake and Output: Intake & Output 06/04/24 06/05/24 06/06/24 06/07/24 11:59 11:59 11:59 11:59 Intake Total 725 4247 Output Total 400 300 Balance 437 3947 Weight 90.1 kg 90.1 kg Lab Results: Lab Results-Last 24 Hours 02/16/24 02/16/24 Range/Units 04:30 04:30 WBC 8.1 (3.98-10.04) x10^3/uL RBC 3.87 L (3.93-5.22) x10^6/uL Hgb 10.1 L (11.2-15.7) g/dL Hct 31.4 L (34.1-44.9) % MCV 81.1 (79.4-94.8) fL MCH 26.1 (25.6-32.2) pg MCHC 32.2 (32.2-35.5) g/dL RDW 16.8 H (11.7-14.4) % Plt Count 103 L (182-369) x10^3/uL MPV 9.7 (9.4-12.3) fL Sodium 126 L (135-145) mmol/L Potassium 3.6 (3.5-5.1) mmol/L Chloride 100 (98-107) mmol/L Carbon Dioxide 17 L (22-30) mmol/L Anion Gap 13.3 (5-15) MEQ/L BUN 23 H (7-17) mg/dL Creatinine 1.40 H (0.52-1.04) mg/dL Estimated GFR 43.9 ML/MIN Glucose 108 H (74-106) mg/dL Calcium 7.5 L (8.4-10.2) mg/dL Total Bilirubin 0.80 (0.2-1.3) mg/dL AST 36 (14-36) U/L ALT 22 (0-35) U/L Alkaline Phosphatase 137 H (38-126) U/L Serum Total Protein 5.9 L (6.3-8.2) g/dL Albumin 3.0 L (3.5-5.0) g/dL Radiology Exams: Radiology Procedures Category Date Time Status ABDOMEN AND PELVIS W/0 CONTRAS [CT] Stat Exams 02/14/24 20:59 Completed KIDNEY [US] Routine Exams 02/15/24 10:26 Completed Assessment/Plan (1) UTI (urinary tract infection) Current Visit: Yes Status: Acute Code(s): N39.0 - URINARY TRACT INFECTION, SITE NOT SPECIFIED (2) Hyponatremia Current Visit: Yes Status: Acute Code(s): E87.1 - HYPO-OSMOLALITY AND HYPON ATREMIA (3) Rectal cancer Current Visit: Yes Status: Acute Code(s): C20 - MALIGNANT NEOPLASM OF RECTUM (4) Colitis Current Visit: Yes Status: Acute Code(s): K52.9 - NONINFECTIVE GASTROENTERITIS AND COLITIS, UNSPECIFIED (5) Gross hematuria Current Visit: Yes Status: Acute (6) Suprapubic abdominal pain Current Visit: Yes Status: Acute Code(s): R10.2 - PELVIC AND PERINEAL PAIN (7) Chronic pain disorder Current Visit: No Status: Chronic Code(s): G89.4 - CHRONIC PAIN SYNDROME (8) Obesity (BMI 30-39.9) Current Visit: Yes Status: Chronic Code(s): E66.9 - OBESITY, UNSPECIFIED (9) Deaf Current Visit: Yes Status: Chronic Assessment & Plan: (1) UTI (urinary tract infection) Current Visit: Yes Status: Acute Assessment & Plan: - zosyn iv - UC pending 02/15 - UC negative - Continue Zosyn for colitis Code(s): N39.0 - URINARY TRACT INFECTION, SITE NOT SPECIFIED (2) Hyponatremia Current Visit: Yes Status: Acute Assessment & Plan: - Na+ on admission 121, today 122 - NS @ 100ml/hr - nephrology consulted - likely 2:2 cancer - No fluid restriction as pt not eating and drinking well 02/15 - Na+ 126- trend - Samsca ordered - awaiting nephrolgy recs - stopped IVF - trend kidney function Code(s): E87.1 - HYPO-OSMOLALITY AND HYPONATREMIA (3) Rectal cancer Current Visit: Yes Status: Acute Assessment & Plan: - Follows Dr. Sharp - adds to complexity - Currently receiving chemo and radiation 02/15 - oncology ordered labs this AM - + BM with rectal blood in stool last night. Hgb 10.1 Code(s): C20 - MALIGNANT NEOPLASM OF RECTUM (4) Colitis Current Visit: Yes Status: Acute Assessment & Plan: - as Seen on CT abd - Zosyn, IVF - pain meds - denies diarrhea 02/15 - + diarrhea with blood in stool last night- start protonix 40 IV BID - IBP stopped - Continue Zosyn - denies Abd pain Code(s): K52.9 - NONINFECTIVE GASTROENTERITIS AND COLITIS, UNSPECIFIED (5) Gross hematuria Current Visit: Yes Status: Acute Assessment & Plan: - US bladder and kidneys: Impression: Nonspecific left renal pelvocaliectasis. Remaining renal sonogram is negative - will need OP f/u with urology. - 2:2 UTI? - Hgb stable 10.0- trend 02/15 - improved - Hgb stable 10.1 (6) Suprapubic abdominal pain Current Visit: Yes Status: Acute Assessment & Plan: - CT abd. 02/14/24 Impression: 1. Worsening diffuse colitis. Tiny abdominal/pelvic free fluid presumed reactive. No walled off fluid collection or free air. 2. Smaller rectal mass and diminished lymphadenopathy all presumed in response to chemotherapy. 3. Chronic bony findings including multilevel degenerative spondylosis and bilateral hip degenerative arthropathy. - Continue OP pain meds 6/7 - resolved pain Code(s): R10.2 - PELVIC AND PERINEAL PAIN (7) Chronic pain disorder Current Visit: No Status: Chronic Assessment & Plan: - Continue home pain meds - narcan PRN resp depression Code(s): G89.4 - CHRONIC PAIN SYNDROME (8) Obesity (BMI 30-39.9) Current Visit: Yes Status: Chronic Assessment & Plan: - advised diet and exercise control Code(s): E66.9 - OBESITY, UNSPECIFIED (9) Deaf Current Visit: Yes Status: Chronic Assessment & Plan: - chronic wears choclear implants- batteries currently - adds to complexity 6/7 - batteries replaced last night VTE: SCD's PPI: Protonix Next of KIN: Sally Walker [phone] D/C plan: 1-2 days Code status: Full Code(s): H91.90 - UNSPECIFIED HEARING LOSS, UNSPECIFIED EAR
[2024-02-16 18:11] LABS: ALBUMIN 2.7 g/dL (3.5-5.0); ANION GAP 12.8 MEQ/L (5-15); BILIRUBIN,TOTAL 0.7 mg/dL (0.2-1.3); Calcium 7.3 mg/dL (8.4-10.2); Creatinine 1 1.6 mg/dL (0.52-1.04); EST GLOMERULAR FILTRATION RATE 37.4 ML/MIN; Potassium 3.3 mmol/L (3.5-5.1); Total Protein 5.6 g/dL (6.3-8.2)
[2024-02-16] MEDS ORDERED: SODIUM BICARBONATE 50 MEQ/50 ML ABBOJECT IV ONE (18:45)
[2024-02-16] MEDS ORDERED: Dextrose 5%/Water IV Soln. 1000 ML 1,000 ML IV ONE (18:47)
[2024-02-16] MEDS: Sodium Bicarbonate 50 MEQ/50 ML VIAL*** 150 MEQ in Dextrose 5%/Water IV Soln. 1000 ML 1... IV SCH (19:07)
[2024-02-16] MEDS: Klor Con PO SCH (19:18)
[2024-02-16] MEDS: PROTONIX 40 MG IV IV SCH (21:30)
[2024-02-17 06:09] LABS: Hematocrit 28.5 % (34.1-44.9); Hemoglobin 9.3 g/dL (11.2-15.7); Mean Cell Volume 79.4 fL (79.4-94.8); Mean Corpuscular Hemoglobin 25.9 pg (25.6-32.2); Mean Corpuscular Hgb Concent. 32.6 g/dL (32.2-35.5); Mean Platelet Volume 10.1 fL (9.4-12.3); Platelet Count 97 x10^3/uL (182-369); Red Blood Count 3.59 x10^6/uL (3.93-5.22); Red Cell Distribution Width 16.7 % (11.7-14.4); White Blood Count 9.9 x10^3/uL (3.98-10.04)
[2024-02-17 06:23] LABS: ALBUMIN 2.9 g/dL (3.5-5.0); ANION GAP 12.4 MEQ/L (5-15); BILIRUBIN,TOTAL 0.7 mg/dL (0.2-1.3); Calcium 7.4 mg/dL (8.4-10.2); Creatinine 1 1.76 mg/dL (0.52-1.04); EST GLOMERULAR FILTRATION RATE 33.3 ML/MIN; Potassium 3.2 mmol/L (3.5-5.1); Total Protein 5.8 g/dL (6.3-8.2)
[2024-02-17] MEDS: POTASSIUM CHLORIDE 20 mEq IN WATER 100ML 100 ML IV SCH (08:04)
[2024-02-17] MEDS: Zofran 4 MG/2 ML VIAL IV PRN (08:21)
[2024-02-17] MEDS: Duragesic 25MCG Patch TOP SCH (09:23)
[2024-02-17] MEDS: Lasix 20 MG/2 ML IV SCH (10:19)
[2024-02-17] MEDS: SODIUM BICARBONATE PO SCH ×2 (10:21→14:04)
--- NOTE | 2024-02-17 10:34 | PCM.NOTE ---
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 She is a patient of primary care provider Dr. Lara and rn first assistant/oncologist Dr. Veliz out of [facility], and who presented to the emergency department after receiving a phone call that her sodium level was 124. The blood was drawn prior to her chemotherapy treatment. It was taken from the port that she has in place. Per review of prior lab results, the patient's most recent sodium level at our institution which was drawn on 12/14/2023 and that was 134, and dating back to 2012 the lowest she ever was was 132. The patient has a diagnosis of her colon cancer (malignant melanoma of the anus) for which she is receiving chemotherapy (immunoglobulin therapy) treatment. The patient also has a history of chronic pain syndrome (follows Stephani Schwartz NP), gastroesophageal reflux disease, hypertension, arthritis, degenerative disc disease, anxiety disorder and PTSD. In the ED, she complained of bladder fullness and lower abdominal pain, and requested bladder catheterization for a urine sample, which demonstrated evidence of a probable UTI. CT of the abdomen demonstrated probable colitis.Today she continues to have hematuria. She is being treated with Zosyn for UTI and colitis. Bladder scan this am showed about 20 ml in bladder post void. She is getting quite a bit of pain meds d/t, Narcan added PRN. Nephrology consulted as sodium remains ar 122 despite IV fluids. Pt denies CP, SOB, N/V/D. 02/16/24 Pt resting in bed. She reports she had a bloody stool last night with diarrhea x1. Hgb stable 10.1. Oncology called and added labs this morning. She explains blood in urine improved. Na+ 126- improved- Samsca started. Awaiting nephrology recommendations. Will keep Zosyn for colitis. UC negative for UTI. US of abd showed nonspecific left renal pelvocaliectasis. She will need OP f/u with urology. Pt denies CP, SOB, abd. pain, N/V. She reports she is feeling better today. 02/17/24 Pt resting in bed. She has + 3 pitting edema of BLLE today. She reports 2 loose stools overnight without hematochezia. Continue probiotics. Will check for c- diff. Continue Zosyn for colitis. Hematuria has resolved. K+ 3.2 and replaced. Na+ 126, discussed pt case with nephrology and recs provided. She denies CP, SOB, N/V. - Review of Systems Constitutional: No Fever, No Chills Eyes: No Symptoms Ears, Nose, & Throat: No Symptoms Respiratory: No Cough, No Short Of Breath Cardiac: Edema (BLLE), No Chest Pain, No Syncope Abdominal/Gastrointestinal: Diarrhea (loose stools), No Abdominal Pain, No Nausea, No Vomiting Genitourinary Symptoms: No Dysuria Musculoskeletal: No Back Pain, No Neck Pain Skin: No Rash Neurological: No Dizziness, No Focal Weakness, No Sensory Changes Psychological: No Symptoms Endocrine: No Symptoms Hematologic/Lymphatic: No Symptoms Immunological/Allergic: No Symptoms Objective Exam General Appearance: no apparent distress, alert Neurologic Exam: alert, oriented x 3, cooperative, normal mood/affect, nml cerebellar function, sensation nml, No motor deficits Skin Exam: normal color, warm, dry Eye Exam: PERRL, EOMI, eyes nml inspection Ears, Nose, Throat Exam: normal ENT inspection, pharynx normal, moist mucous membranes Neck Exam: normal inspection, non-tender, supple, full range of motion Respiratory Exam: normal breath sounds, lungs clear, No respiratory distress Cardiovascular Exam: regular rate/rhythm, normal heart sounds, edema (BLLE + 3 pitting) Gastrointestinal/Abdomen Exam: soft, tenderness (LLQ), No mass Extremity Exam: normal inspection, normal range of motion Back Exam: normal inspection, normal range of motion, No CVA tenderness, No vertebral tenderness Pelvic Exam: deferred Rectal Exam: deferred Objective Data Vital Signs: Vital Signs - 24 hr Temp Pulse Resp BP Pulse Ox 02/17/24 08:00 20 02/17/24 07:00 97.5 F 84 20 125/66 99 02/17/24 03:00 98.2 F 89 16 133/73 96 02/17/24 00:00 17 02/16/24 23:00 98.7 F 84 17 115/60 98 02/16/24 20:00 16 02/16/24 19:47 98.0 F 86 16 117/69 99 02/16/24 16:00 97.7 F 82 16 132/73 99 02/16/24 12:00 14 02/16/24 11:42 97.7 F 84 19 115/64 98 Pain Assessment - Last Documented Pain Intensity 3 Pain Scale Used 0-10 Pain Scale Intake and Output: Intake & Output 02/14/24 02/15/24 02/16/24 02/17/24 11:59 11:59 11:59 11:59 Intake Total 837 4247 470 Output Total 212 543 3401 Balance 437 5081 -1780 Weight 90.1 kg 90.1 kg Lab Results: Lab Results-Last 24 Hours 02/16/24 02/16/24 02/17/24 Range/Units 04:30 17:30 05:20 WBC 9.9 (3.98-10.04) x10^3/uL RBC 3.59 L (3.93-5.22) x10^6/uL Hgb 9.3 L (11.2-15.7) g/dL Hct 28.5 L (34.1-44.9) % MCV 79.4 (79.4-94.8) fL MCH 25.9 (25.6-32.2) pg MCHC 32.6 (32.2-35.5) g/dL RDW 16.7 H (11.7-14.4) % Plt Count 97 L (182-369) x10^3/uL MPV 10.1 (9.4-12.3) fL Sodium 126 L (135-145) mmol/L Potassium 3.3 L (3.5-5.1) mmol/L Chloride 101 (98-107) mmol/L Carbon Dioxide 14 L* (22-30) mmol/L Anion Gap 12.8 (5-15) MEQ/L BUN 24 H (7-17) mg/dL Creatinine 1.60 H (0.52-1.04) mg/dL Estimated GFR 37.4 ML/MIN Glucose 109 H (74-106) mg/dL Calcium 7.3 L (8.4-10.2) mg/dL Magnesium (1.6-2.3) mg/dL Total Bilirubin 0.70 (0.2-1.3) mg/dL AST 34 (14-36) U/L ALT 21 (0-35) U/L Alkaline Phosphatase 133 H (38-126) U/L Serum Total Protein 5.6 L (6.3-8.2) g/dL Albumin 2.7 L (3.5-5.0) g/dL TSH 3rd Generation 5.255 H (0.470-4.680) mIU/L 02/17/24 02/17/24 Range/Units 05:20 05:20 WBC (3.98-10.04) x10^3/uL RBC (3.93-5.22) x10^6/uL Hgb (11.2-15.7) g/dL Hct (34.1-44.9) % MCV (79.4-94.8) fL MCH (25.6-32.2) pg MCHC (32.2-35.5) g/dL RDW (11.7-14.4) % Plt Count (182-369) x10^3/uL MPV (9.4-12.3) fL Sodium 126 L (135-145) mmol/L Potassium 3.2 L (3.5-5.1) mmol/L Chloride 99 (98-107) mmol/L Carbon Dioxide 18 L (22-30) mmol/L Anion Gap 12.4 (5-15) MEQ/L BUN 24 H (7-17) mg/dL Creatinine 1.76 H (0.52-1.04) mg/dL Estimated GFR 33.3 ML/MIN Glucose 127 H (74-106) mg/dL Calcium 7.4 L (8.4-10.2) mg/dL Magnesium 1.9 (1.6-2.3) mg/dL Total Bilirubin 0.70 (0.2-1.3) mg/dL AST 32 (14-36) U/L ALT 22 (0-35) U/L Alkaline Phosphatase 144 H (38-126) U/L Serum Total Protein 5.8 L (6.3-8.2) g/dL Albumin 2.9 L (3.5-5.0) g/dL TSH 3rd Generation (0.470-4.680) mIU/L Radiology Exams: Radiology Procedures Category Date Time Status KIDNEY [US] Routine Exams 02/15/24 10:26 Completed Assessment/Plan (1) UTI (urinary tract infection) Current Visit: Yes Status: Acute Code(s): N39.0 - URINARY TRACT INFECTION, SITE NOT SPECIFIED (2) Hyponatremia Current Visit: Yes Status: Acute Code(s): E87.1 - HYPO-OSMOLALITY AND HYPONATREMIA (3) Rectal cancer Current Visit: Yes Status: Acute Code(s): C20 - MALIGNANT NEOPLASM OF RECTUM (4) Colitis Current Visit: Yes Status: Acute Code(s): K52.9 - NONINFECTIVE GASTROENTERITIS AND COLITIS, UNSPECIFIED (5) Gross hematuria Current Visit: Yes Status: Acute (6) Suprapubic abdominal pain Current Visit: Yes Status: Acute Code(s): R10.2 - PELVIC AND PERINEAL PAIN (7) Chronic pain disorder Current Visit: No Status: Chronic Code(s): G89.4 - CHRONIC PAIN SYNDROME (8) Obesity (BMI 30-39.9) Current Visit: Yes Status: Chronic Code(s): E66.9 - OBESITY, UNSPECIFIED (9) Deaf Current Visit: Yes Status: Chronic Assessment & Plan: 1) UTI (urinary tract infection) Current Visit: Yes Status: Acute Assessment & Plan: - zosyn iv - UC pending 02/15 - UC negative - Continue Zosyn for colitis Code(s): N39.0 - URINARY TRACT INFECTION, SITE NOT SPECIFIED (2) Hyponatremia Current Visit: Yes Status: Acute Assessment & Plan: - Na+ on admission 121, today 122 - NS @ 100ml/hr - nephrology consulted - likely 2:2 cancer - No fluid restriction as pt not eating and drinking well - Urine osmolality ordered 02/13 and send out lab 02/15 - Na+ 126- trend - Samsca ordered - awaiting nephrolgy recs - stopped IVF - trend kidney function 02/16 - Spoke with nephrology Dr. Huntley at [place] - recs included: Stopped bicarb drip and changed to oral bicarb 1,300 TID, Lasix 20mg BID, and increase fluid restriction to 1500. - Na+ 126- trend- recheck later today Code(s): E87.1 - HYPO-OSMOLALITY AND HYPONATREMIA (3) Rectal cancer Current Visit: Yes Status: Acute Assessment & Plan: - Follows Dr. Sharp - adds to complexity - Currently receiving chemo and radiation 02/15 - oncology ordered labs this AM- cortisol - TSH to be managed Op slightly elevated - + BM with rectal blood in stool last night. Hgb 10.1 02/16 - Loose stools x2 last night- no hematochezia - Stool for c-diff - Cortisol lab is a send out Code(s): C20 - MALIGNANT NEOPLASM OF RECTUM (4) Colitis Current Visit: Yes Status: Acute Assessment & Plan: - as Seen on CT abd - Zosyn, IVF - pain meds - denies diarrhea /7 - + diarrhea with blood in stool last night- start protonix 40 IV BID - IBP stopped - Continue Zosyn - denies Abd pain 02/16 - Loose stools x2 last night- no hematochezia - Stool for c-diff Code(s): K52.9 - NONINFECTIVE GASTROENTERITIS AND COLITIS, UNSPECIFIED (5) Gross hematuria Current Visit: Yes Status: Acute Assessment & Plan: - US bladder and kidneys: Impression: Nonspecific left renal pelvocaliectasis. Remaining renal sonogram is negative - will need OP f/u with urology - 2:2 UTI? - Hgb stable 10.0- trend 02/15 - improved - Hgb stable 10.1 02/16 - Hgb 9.3 trend - No hematuria- resolved (6) Suprapubic abdominal pain Current Visit: Yes Status: Acute Assessment & Plan: - CT abd. 02/14/24 Impression: 1. Worsening diffuse colitis. Tiny abdominal/pelvic free fluid presumed reactive. No walled off fluid collection or free air. 2. Smaller rectal mass and diminished lymphadenopathy all presumed in response to chemotherapy. 3. Chronic bony findings including multilevel degenerative spondylosis and bilateral hip degenerative arthropathy. - Continue OP pain meds 02/15 - resolved pain Code(s): R10.2 - PELVIC AND PERINEAL PAIN (7) Chronic pain disorder Current Visit: No Status: Chronic Assessment & Plan: - Continue home pain meds - narcan PRN resp depression 02/16 - pt took off fentanyl patch last night, states she is to be weaning off. We do not carry fentyl patch needed to wean down. She states her pain is currently controlled with out this and doing well. Denies withdraw sxs. Code(s): G89.4 - CHRONIC PAIN SYNDROME (8) Obesity (BMI 30-39.9) Current Visit: Yes Status: Chronic Assessment & Plan: - advised diet and exercise control Code(s): E66.9 - OBESITY, UNSPECIFIED (9) Deaf Current Visit: Yes Status: Chronic Assessment & Plan: - chronic wears choclear implants- batteries currently - adds to complexity 6/7 - batteries replaced last night Code(s): H91.90 - UNSPECIFIED HEARING LOSS, UNSPECIFIED EAR (10) Hypokalemia Current Visit: Yes Status: Acute Assessment & Plan: - K+ 3.2 - replaced- recheck this afternoon- trend Code(s): E87.6 - HYPOKALEMIA (11) FATOU (acute kidney injury) Current Visit: Yes Status: Acute Assessment & Plan: - Creat 1.76 - baseline 0.95 - See above plan for hyponatremia Code(s): N17.9 - ACUTE KIDNEY FAILURE, UNSPECIFIED (12) Thrombocytopenia Current Visit: Yes Status: Chronic Assessment & Plan: - Platelets 97- trend - 2:2 Rectal CA with chemo and radiation treatment VTE: SCD's PPI: Protonix Next of KIN: Sally Walker [phone] D/C plan: 2-3 days Code status: Full
[2024-02-17] MEDS: Piperacillin/Tazobactam 2.25 GM 2.25 GM in Sodium Chloride 100ML MINI-BAG PLUS 100 ML IV SCH (11:32)
[2024-02-17 13:27] LABS: 027 TOX PROD PRESUMPTIVE NEGATIVE (NEGATIVE); TOXIGENIC C. DIFF ORG NEGATIVE (NEGATIVE)
[2024-02-17 15:48] LABS: ALBUMIN 2.8 g/dL (3.5-5.0); ANION GAP 11.7 MEQ/L (5-15); BILIRUBIN,TOTAL 0.7 mg/dL (0.2-1.3); Calcium 7.5 mg/dL (8.4-10.2); Creatinine 1 1.76 mg/dL (0.52-1.04); EST GLOMERULAR FILTRATION RATE 33.3 ML/MIN; MAGNESIUM 1.7 mg/dL (1.6-2.3); Potassium 4.3 mmol/L (3.5-5.1); Total Protein 5.6 g/dL (6.3-8.2)
[2024-02-18 06:07] LABS: Hematocrit 28.4 % (34.1-44.9); Hemoglobin 9.2 g/dL (11.2-15.7); Mean Cell Volume 80.9 fL (79.4-94.8); Mean Corpuscular Hemoglobin 26.2 pg (25.6-32.2); Mean Corpuscular Hgb Concent. 32.4 g/dL (32.2-35.5); Mean Platelet Volume 9.5 fL (9.4-12.3); Platelet Count 85 x10^3/uL (182-369); Red Blood Count 3.51 x10^6/uL (3.93-5.22); Red Cell Distribution Width 17.2 % (11.7-14.4); White Blood Count 11.1 x10^3/uL (3.98-10.04)
--- NOTE | 2024-02-18 07:38 | PCM.NOTE ---
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 She is a patient of primary care provider Dr. Lara and rn ccu/oncologist Dr. Veliz out of [facility], and who presented to the emergency department after receiving a phone call that her sodium level was 124. The blood was drawn prior to her chemotherapy treatment. It was taken from the port that she has in place. Per review of prior lab results, the patient's most recent sodium level at our institution which was drawn on 12/14/2023 and that was 134, and dating back to 2012 the lowest she ever was was 132. The patient has a diagnosis of her colon cancer (malignant melanoma of the anus) for which she is receiving chemotherapy (immunoglobulin therapy) treatment. The patient also has a history of chronic pain syndrome (follows Stephani Schwartz NP), gastroesophageal reflux disease, hypertension, arthritis, degenerative disc disease, anxiety disorder and PTSD. In the ED, she complained of bladder fullness and lower abdominal pain, and requested bladder catheterization for a urine sample, which demonstrated evidence of a probable UTI. CT of the abdomen demonstrated probable colitis.Today she continues to have hematuria. She is being treated with Zosyn for UTI and colitis. Bladder scan this am showed about 20 ml in bladder post void. She is getting quite a bit of pain meds d/t, Narcan added PRN. Nephrology consulted as sodium remains ar 122 despite IV fluids. Pt denies CP, SOB, N/V/D. 02/16/24 Pt resting in bed. She reports she had a bloody stool last night with diarrhea x1. Hgb stable 10.1. Oncology called and added labs this morning. She explains blood in urine improved. Na+ 126- improved- Samsca started. Awaiting nephrology recommendations. Will keep Zosyn for colitis. UC negative for UTI. US of abd showed nonspecific left renal pelvocaliectasis. She will need OP f/u with urology. Pt denies CP, SOB, abd. pain, N/V. She reports she is feeling better today. 02/17/24 Pt resting in bed. She has + 3 pitting edema of BLLE today. She reports 2 loose stools overnight without hematochezia. Continue probiotics. Will check for c- diff. Continue Zosyn for colitis. Hematuria has resolved. K+ 3.2 and replaced. Na+ 126, discussed pt case with nephrology and recs provided. She denies CP, SOB, N/V. 02/18/24 Pt resting in bed. She continues to have +3 pitting edema of BLLE despite Lasix BID started yesterday. FATOU worsening, however this was to be expected per nephrology and should improve tomorrow. Sodium improved 127. Pain well controlled. Will need to call oncology tomorrow to discuss platelets lowering. Consider transfer to higher level of care tomorrow if labs do not improve. Continue zosyn for colitis. She reports no diarrhea overnight. Pain is well controlled. She does not want to transfer to another hospital and would like to stay here if possible. She denies any further concerns at this time. - Review of Systems Constitutional: No Fever, No Chills Eyes: No Symptoms Ears, Nose, & Throat: No Symptoms Respiratory: No Cough, No Short Of Breath Cardiac: Edema (BLLE), No Chest Pain, No Syncope Abdominal/Gastrointestinal: Abdominal Pain (with palpation of LLQ), No Nausea, No Vomiting, No Diarrhea Genitourinary Symptoms: No Dysuria Musculoskeletal: No Back Pain, No Neck Pain Skin: No Rash Neurological: No Dizziness, No Focal Weakness, No Sensory Changes Psychological: No Symptoms Endocrine: No Symptoms Hematologic/Lymphatic: No Symptoms Immunological/Allergic: No Symptoms Objective Exam General Appearance: no apparent distress, alert, obese Neurologic Exam: alert, oriented x 3, cooperative, normal mood/affect, nml cerebellar function, sensation nml, No motor deficits Skin Exam: normal color, warm, dry Eye Exam: PERRL, EOMI, eyes nml inspection Ears, Nose, Throat Exam: normal ENT inspection, pharynx normal, moist mucous membranes Neck Exam: normal inspection, non-tender, supple, full range of motion Respiratory Exam: normal breath sounds, lungs clear, No respiratory distress Cardiovascular Exam: regular rate/rhythm, normal heart sounds, edema (BLLE) Gastrointestinal/Abdomen Exam: soft, tenderness (LLQ pain with palpation), No mass Extremity Exam: normal inspection, normal range of motion Back Exam: normal inspection, normal range of motion, No CVA tenderness, No vertebral tenderness Pelvic Exam: deferred Rectal Exam: deferred Objective Data Vital Signs: Vital Signs - 24 hr Temp Pulse Resp BP Pulse Ox 02/18/24 07:00 97.9 F 88 16 116/57 98 02/18/24 04:00 18 02/18/24 03:00 97.3 F 107 H 20 126/70 96 02/18/24 00:00 18 02/17/24 23:00 97.5 F 89 18 129/71 95 02/17/24 20:00 17 02/17/24 19:00 98.4 F 92 H 17 120/78 99 02/17/24 16:00 17 02/17/24 15:00 98.8 F 82 17 111/56 99 02/17/24 12:00 16 02/17/24 11:00 97.6 F 91 H 19 110/61 96 02/17/24 08:00 20 Pain Assessment - Last Documented Pain Intensity 6 Pain Scale Used 0-10 Pain Scale Intake and Output: Intake & Output 02/15/24 02/16/24 02/17/24 02/18/24 11:59 11:59 11:59 11:59 Intake Total 837 4247 620 450 Output Total 763 371 2177 1300 Balance 437 3947 -2280 -850 Weight 90.1 kg 90.1 kg Lab Results: Lab Results-Last 24 Hours 02/16/24 02/17/24 02/17/24 Range/Units 04:30 12:45 15:00 WBC (3.98-10.04) x10^3/uL RBC (3.93-5.22) x10^6/uL Hgb (11.2-15.7) g/dL Hct (34.1-44.9) % MCV (79.4-94.8) fL MCH (25.6-32.2) pg MCHC (32.2-35.5) g/dL RDW (11.7-14.4) % Plt Count (182-369) x10^3/uL MPV (9.4-12.3) fL Sodium 127 L (135-145) mmol/L Potassium 4.3 D (3.5-5.1) mmol/L Chloride 100 (98-107) mmol/L Carbon Dioxide 20 L (22-30) mmol/L Anion Gap 11.7 (5-15) MEQ/L BUN 24 H (7-17) mg/dL Creatinine 1.76 H (0.52-1.04) mg/dL Estimated GFR 33.3 ML/MIN Glucose 110 H (74-106) mg/dL Calcium 7.5 L (8.4-10.2) mg/dL Magnesium 1.7 (1.6-2.3) mg/dL Total Bilirubin 0.70 (0.2-1.3) mg/dL AST 33 (14-36) U/L ALT 21 (0-35) U/L Alkaline Phosphatase 142 H (38-126) U/L Serum Total Protein 5.6 L (6.3-8.2) g/dL Albumin 2.8 L (3.5-5.0) g/dL Cortisol 30.9 H (6.2-19.4) ug/dL C. difficile Screen NEGATIVE (NEGATIVE) C.difficile [id number] PRESUMPTIVE NEGATIVE (NEGATIVE) 02/18/24 Range/Units 05:15 WBC 11.1 H (3.98-10.04) x10^3/uL RBC 3.51 L (3.93-5.22) x10^6/uL Hgb 9.2 L (11.2-15.7) g/dL Hct 28.4 L (34.1-44.9) % MCV 80.9 (79.4-94.8) fL MCH 26.2 (25.6-32.2) pg MCHC 32.4 (32.2-35.5) g/dL RDW 17.2 H (11.7-14.4) % Plt Count 85 L (182-369) x10^3/uL MPV 9.5 (9.4-12.3) fL Sodium (135-145) mmol/L Potassium (3.5-5.1) mmol/L Chloride (98-107) mmol/L Carbon Dioxide (22-30) mmol/L Anion Gap (5-15) MEQ/L BUN (7-17) mg/dL Creatinine (0.52-1.04) mg/dL Estimated GFR ML/MIN Glucose (74-106) mg/dL Calcium (8.4-10.2) mg/dL Magnesium (1.6-2.3) mg/dL Total Bilirubin (0.2-1.3) mg/dL AST (14-36) U/L ALT (0-35) U/L Alkaline Phosphatase (38-126) U/L Serum Total Protein (6.3-8.2) g/dL Albumin (3.5-5.0) g/dL Cortisol (6.2-19.4) ug/dL C. difficile Screen (NEGATIVE) C.difficile [id number] (NEGATIVE) Multi-Disciplinary Progress Notes: Multi-Disciplinary Progress Notes 02/17/24 10:29 Pharmacy Note by Conrad Perales Zosyn decreased to 2.25gm dose per renal dosing policy. Estimated crcl is 27ml/min. Initialized on 02/17/24 10:29 - END OF NOTE Assessment/Plan (1) UTI (urinary tract infection) Current Visit: Yes Status: Acute Code(s): N39.0 - URINARY TRACT INFECTION, SITE NOT SPECIFIED (2) Hyponatremia Current Visit: Yes Status: Acute Code(s): E87.1 - HYPO-OSMOLALITY AND HYPONATREMIA (3) Rectal cancer Current Visit: Yes Status: Acute Code(s): C20 - MALIGNANT NEOPLASM OF RECTUM (4) Colitis Current Visit: Yes Status: Acute Code(s): K52.9 - NONINFECTIVE GASTROENTERITIS AND COLITIS, UNSPECIFIED (5) Gross hematuria Current Visit: Yes Status: Acute (6) Suprapubic abdominal pain Current Visit: Yes Status: Acute Code(s): R10.2 - PELVIC AND PERINEAL PAIN (7) Chronic pain disorder Current Visit: No Status: Chronic Code(s): G89.4 - CHRONIC PAIN SYNDROME (8) Obesity (BMI 30-39.9) Current Visit: Yes Status: Chronic Code(s): E66.9 - OBESITY, UNSPECIFIED (9) Deaf Current Visit: Yes Status: Chronic Code(s): H91.90 - UNSPECIFIED HEARING LOSS, UNSPECIFIED EAR (10) Hypokalemia Current Visit: Yes Status: Acute Code(s): E87.6 - HYPOKALEMIA (11) FATOU (acute kidney injury) Current Visit: Yes Status: Acute Code(s): N17.9 - ACUTE KIDNEY FAILURE, UNSPECIFIED (12) Thrombocytopenia Current Visit: Yes Status: Chronic Assessment & Plan: 1) UTI (urinary tract infection) Current Visit: Yes Status: Acute Assessment & Plan: - zosyn iv - UC pending 02/15 - UC negative - Continue Zosyn for colitis 02/17 -WBC 11.1 today no fever or change of sxs overnight- repeat UA Code(s): N39.0 - URINARY TRACT INFECTION, SITE NOT SPECIFIED (2) Hyponatremia Current Visit: Yes Status: Acute Assessment & Plan: - Na+ on admission 121, today 122 - NS @ 100ml/hr - nephrology consulted - likely 2:2 cancer - No fluid restriction as pt not eating and drinking well - Urine osmolality ordered 02/13 and send out lab 02/15 - Na+ 126- trend - Samsca ordered - awaiting nephrolgy recs - stopped IVF - trend kidney function 02/16 - Spoke with nephrology Dr. Huntley at [place] - recs included: Stopped bicarb drip and changed to oral bicarb 1,300 TID, Lasix 20mg BID, and increase fluid restriction to 1500. - Na+ 126- trend- recheck later today- repeat Na+127 02/17 - Na+127 - consider transfer tomorrow if labs do not improve Code(s): E87.1 - HYPO-OSMOLALITY AND HYPONATREMIA (3) Rectal cancer Current Visit: Yes Status: Acute Assessment & Plan: - Follows Dr. Sharp - adds to complexity - Currently receiving chemo and radiation 02/15 - oncology ordered labs this AM- cortisol - TSH to be managed Op slightly elevated - + BM with rectal blood in stool last night. Hgb 10.1 02/16 - Loose stools x2 last night- no hematochezia - Stool for c-diff - Cortisol lab is a send out 02/17 - no loose stools overnight - C-diff negative - Cortisol 30.9 Code(s): C20 - MALIGNANT NEOPLASM OF RECTUM (4) Colitis Current Visit: Yes Status: Acute Assessment & Plan: - as Seen on CT abd - Zosyn, IVF - pain meds - denies diarrhea 02/15 - + diarrhea with blood in stool last night- start protonix 40 IV BID - IBP stopped - Continue Zosyn - denies Abd pain 02/16 - Loose stools x2 last night- no hematochezia - Stool for c-diff- negative 02/17 -WBC 11.1 today no fever or change of sxs overnight- repeat UA - no loose stools overnight Code(s): K52.9 - NONINFECTIVE GASTROENTERITIS AND COLITIS, UNSPECIFIED (5) Gross hematuria Current Visit: Yes Status: Acute Assessment & Plan: - US bladder and kidneys: Impression: Nonspecific left renal pelvocaliectasis. Remaining renal sonogram is negative - will need OP f/u with urology - 2:2 UTI? - Hgb stable 10.0- trend 02/15 - improved - Hgb stable 10.1 02/16 - Hgb 9.3 trend - No hematuria- resolved (6) Suprapubic abdominal pain Current Visit: Yes Status: Acute Assessment & Plan: - CT abd. 02/14/24 Impression: 1. Worsening diffuse colitis. Tiny abdominal/pelvic free fluid presumed reactive. No walled off fluid collection or free air. 2. Smaller rectal mass and diminished lymphadenopathy all presumed in response to chemotherapy. 3. Chronic bony findings including multilevel degenerative spondylosis and bilateral hip degenerative arthropathy. - Continue OP pain meds 02/15 - resolved pain Code(s): R10.2 - PELVIC AND PERINEAL PAIN (7) Chronic pain disorder Current Visit: No Status: Chronic Assessment & Plan: - Continue home pain meds - narcan PRN resp depression 02/16 - pt took off fentanyl patch last night, states she is to be weaning off. We do not carry fentyl patch needed to wean down. She states her pain is currently controlled with out this and doing well. Denies withdraw sxs. 02/17 - pain well controlled Code(s): G89.4 - CHRONIC PAIN SYNDROME (8) Obesity (BMI 30-39.9) Current Visit: Yes Status: Chronic Assessment & Plan: - advised diet and exercise control Code(s): E66.9 - OBESITY, UNSPECIFIED (9) Deaf Current Visit: Yes Status: Chronic Assessment & Plan: - chronic wears choclear implants- batteries currently - adds to complexity 02/15 - batteries replaced last night Code(s): H91.90 - UNSPECIFIED HEARING LOSS, UNSPECIFIED EAR (10) Hypokalemia Current Visit: Yes Status: Acute Assessment & Plan: - K+ 3.2 - replaced- recheck this afternoon- trend 02/17 - resolved Code(s): E87.6 - HYPOKALEMIA (11) FATOU (acute kidney injury) Current Visit: Yes Status: Acute Assessment & Plan: - Creat 1.76 - baseline 0.95 - See above plan for hyponatremia 02/17 - Creat 1.99 - 2:2 starting lasix yesterday Code(s): N17.9 - ACUTE KIDNEY FAILURE, UNSPECIFIED (12) Thrombocytopenia Current Visit: Yes Status: Chronic Assessment & Plan: - Platelets 97- trend - 2:2 Rectal CA with chemo and radiation treatment 02/17 - Platelets 85 - Will need to discuss with oncology tomorrow - monitor/ trend labs VTE: SCD's PPI: Protonix Next of KIN: Sally Walker [phone] D/C plan: 2-3 days Code status: Full
[2024-02-18 08:04] LABS: ALBUMIN 2.8 g/dL (3.5-5.0); ANION GAP 11.5 MEQ/L (5-15); BILIRUBIN,TOTAL 0.7 mg/dL (0.2-1.3); Calcium 7.6 mg/dL (8.4-10.2); Creatinine 1 1.99 mg/dL (0.52-1.04); EST GLOMERULAR FILTRATION RATE 28.8 ML/MIN; Potassium 3.9 mmol/L (3.5-5.1); Total Protein 5.5 g/dL (6.3-8.2)
[2024-02-18 11:31] LABS: Slide Review YES
[2024-02-18 17:26] LABS: Appearance Clear (Clear); Bacteria None Seen /HPF (None Seen); Bilirubin Negative (Negative); Blood Large (Negative); Epithelial Cells Few /HPF (None Seen); Glucose, Urine Negative (Negative); Ketones Negative (Negative); Leukocyte Esterase Trace (Negative); Nitrite Negative (Negative); Ph 5.5 (4.6-8.0); Protein,Urine Dip 300 (Negative); RBC >100 /HPF (0-5); Specific Gravity 1.015 (1.005-1.030); Urobilinogen 0.2 mg/dL (0.2)
[2024-02-18 17:31] LABS: ADD URINE CULTURE? YES (NO)
--- NOTE | 2024-02-19 05:28 | PCM.NOTE ---
Date and Time: 02/19/24522 Subjective Assessment: is a 58 year old female with a pmhx of colon cancer, chronic pain syndrome (follows Stephani Schwartz NP), gastroesophageal reflux disease, hypertension, arthritis, degenerative disc disease, anxiety disorder and PTSD, and 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 She had also been experiencing suprapubic pressure, hematuria, pain, and urinary retention. UC negative. CT of the abdomen showed diffuse, worsening colitis, rectal mass, and lymphadenopathy. Patient received IP treatment with Zosyn for colitis. Hyponatremia was initially treated with IVF with no response. She received one dose of Samsca with no response. Patient was also found with acidosis. Patient developed FATOU. Nephrology consulted, Dr. Huntley, who recommended oral bicarb 1,300 TID, Lasix 20mg BID, and increase fluid restriction to 1500. Plan is to transfer if there is no response to medications. Objective Data Vital Signs: Vital Signs - 24 hr Temp Pulse Resp BP Pulse Ox 02/19/24 04:00 18 02/19/24 03:00 97.9 F 91 H 16 108/63 93 L 02/19/24 00:00 18 02/18/24 23:00 98.7 F 88 17 115/60 96 02/18/24 20:00 18 02/18/24 19:00 98.7 F 95 H 18 116/65 95 02/18/24 16:00 14 02/18/24 15:00 97.9 F 92 H 16 127/73 98 02/18/24 12:00 16 02/18/24 11:00 97.9 F 82 16 111/63 98 02/18/24 08:00 18 02/18/24 07:00 97.9 F 88 16 116/57 98 Pain Assessment - Last Documented Pain Intensity 0 Pain Scale Used 0-10 Pain Scale Intake and Output: Intake & Output 02/16/24 02/17/24 02/18/24 02/19/24 11:59 11:59 11:59 11:59 Intake Total 6750 620 650 680 Output Total 300 2900 1300 Balance 4022 -4424 -711 680 Weight 90.1 kg Lab Results: Lab Results-Last 24 Hours 02/18/24 02/18/24 02/18/24 Range/Units 04:00 05:15 05:15 WBC 11.1 H (3.98-10.04) x10^3/uL RBC 3.51 L (3.93-5.22) x10^6/uL Hgb 9.2 L (11.2-15.7) g/dL Hct 28.4 L (34.1-44.9) % MCV 80.9 (79.4-94.8) fL MCH 26.2 (25.6-32.2) pg MCHC 32.4 (32.2-35.5) g/dL RDW 17.2 H (11.7-14.4) % Plt Count 85 L (182-369) x10^3/uL MPV 9.5 (9.4-12.3) fL Sodium 127 L (135-145) mmol/L Potassium 3.9 (3.5-5.1) mmol/L Chloride 100 (98-107) mmol/L Carbon Dioxide 19 L (22-30) mmol/L Anion Gap 11.5 (5-15) MEQ/L BUN 25 H (7-17) mg/dL Creatinine 1.99 H (0.52-1.04) mg/dL Estimated GFR 28.8 ML/MIN Glucose 113 H (74-106) mg/dL Calcium 7.6 L (8.4-10.2) mg/dL Magnesium 1.9 (1.6-2.3) mg/dL Total Bilirubin 0.70 (0.2-1.3) mg/dL AST 35 (14-36) U/L ALT 22 (0-35) U/L Alkaline Phosphatase 159 H (38-126) U/L Serum Total Protein 5.5 L (6.3-8.2) g/dL Albumin 2.8 L (3.5-5.0) g/dL Urine Color (Yellow) Urine Appearance (Clear) Urine pH (4.6-8.0) Ur Specific [place] (1.005-1.030) Urine Protein (Negative) Urine Glucose (UA) (Negative) mg/dL Urine Ketones (Negative) Urine Blood (Negative) Urine Nitrite (Negative) Urine Bilirubin (Negative) Urine Urobilinogen (0.2) mg/dL Ur Leukocyte Esterase (Negative) U Hyaline Cast (Auto) (0-2) /LPF Urine Microscopic RBC (0-5) /HPF Urine Microscopic WBC (0-5) /HPF Ur Epithelial Cells (None Seen) /HPF Urine Bacteria (None Seen) /HPF Urine Culture Reflexed (NO) Slides for Path Review YES 02/18/24 Range/Units 17:17 WBC (3.98-10.04) x10^3/uL RBC (3.93-5.22) x10^6/uL Hgb (11.2-15.7) g/dL Hct (34.1-44.9) % MCV (79.4-94.8) fL MCH (25.6-32.2) pg MCHC (32.2-35.5) g/dL RDW (11.7-14.4) % Plt Count (182-369) x10^3/uL MPV (9.4-12.3) fL Sodium (135-145) mmol/L Potassium (3.5-5.1) mmol/L Chloride (98-107) mmol/L Carbon Dioxide (22-30) mmol/L Anion Gap (5-15) MEQ/L BUN (7-17) mg/dL Creatinine (0.52-1.04) mg/dL Estimated GFR ML/MIN Glucose (74-106) mg/dL Calcium (8.4-10.2) mg/dL Magnesium (1.6-2.3) mg/dL Total Bilirubin (0.2-1.3) mg/dL AST (14-36) U/L ALT (0-35) U/L Alkaline Phosphatase (38-126) U/L Serum Total Protein (6.3-8.2) g/dL Albumin (3.5-5.0) g/dL Urine Color Yellow (Yellow) Urine Appearance Clear (Clear) Urine pH 5.5 (4.6-8.0) Ur Specific [place] 1.015 (1.005-1.030) Urine Protein 300 A (Negative) Urine Glucose (UA) Negative (Negative) mg/dL Urine Ketones Negative (Negative) Urine Blood Large A (Negative) Urine Nitrite Negative (Negative) Urine Bilirubin Negative (Negative) Urine Urobilinogen 0.2 (0.2) mg/dL Ur Leukocyte Esterase Trace A (Negative) U Hyaline Cast (Auto) 3-5 A (0-2) /LPF Urine Microscopic RBC >100 A (0-5) /HPF Urine Microscopic WBC 6-10 A (0-5) /HPF Ur Epithelial Cells Few (None Seen) /HPF Urine Bacteria None Seen (None Seen) /HPF Urine Culture Reflexed YES (NO) Slides for Path Review Assessment/Plan (1) UTI (urinary tract infection) Current Visit: Yes Status: Acute Assessment & Plan: -Initial UA suspicious for UTI, culture negative -pt is receiving Zosyn for colitis -Repeat UA ordered 02/17 -pending Code(s): N39.0 - URINARY TRACT INFECTION, SITE NOT SPECIFIED (2) Hyponatremia Current Visit: Yes Status: Acute Code(s): E87.1 - HYPO-OSMOLALITY AND HYPONATREMIA (3) FATOU (acute kidney injury) Current Visit: Yes Status: Acute Assessment & Plan: -Most likely secondary to malignancy -Na+ on admission 121 - initial treatment with IVF and later samsca with no response -Nephrology consulted, Dr. Huntley at [place] with recs for oral bicarb 1,300 TID, Lasix 20mg BID, and increase fluid restriction to 1500 - sodium levels slowly improving Code(s): N17.9 - ACUTE KIDNEY FAILURE, UNSPECIFIED (4) Rectal cancer Current Visit: Yes Status: Acute Assessment & Plan: -Follows with [facility] -Current treatment with chemo/radiation -Dr. Fuentes ordered corisol and TSH levels; TSH level to be managed as OP -Patient with rectal blood /loose stools -hgb stable, CDIFF negative -Cortisol level is elevated at 30.9 Code(s): C20 - MALIGNANT NEOPLASM OF RECTUM (5) Colitis Current Visit: Yes Status: Acute Assessment & Plan: - as Seen on CT abd - Zosyn, IVF - pain meds - + diarrhea with blood in stool - protonix 40 IV BID Code(s): K52.9 - NONINFECTIVE GASTROENTERITIS AND COLITIS, UNSPECIFIED (6) Gross hematuria Current Visit: Yes Status: Acute Assessment & Plan: - US bladder and kidneys: Impression: Nonspecific left renal pelvocaliectasis. Remaining renal sonogram is negative - will need OP f/u with urology - 2:2 UTI? - Hgb stable 10.0- trend 02/15 - improved - Hgb stable 10.1 02/16 - Hgb 9.3 trend - No hematuria- resolved (7) Suprapubic abdominal pain Current Visit: Yes Status: Acute Assessment & Plan: - CT abd. 02/14/24 showing worsening diffuse colitis. Tiny abdominal/pelvic free fluid presumed reactive. No walled off fluid collection or free air. Smaller rectal mass and diminished lymphadenopathy all presumed in response to chemotherapy. - Continue OP pain meds 02/15 - resolved Code(s): R10.2 - PELVIC AND PERINEAL PAIN (8) Deaf Current Visit: Yes Status: Chronic Assessment & Plan: - chronic wears choclear implants Code(s): H91.90 - UNSPECIFIED HEARING LOSS, UNSPECIFIED EAR (9) Obesity (BMI 30-39.9) Current Visit: Yes Status: Chronic Assessment & Plan: - advised diet and exercise control Code(s): E66.9 - OBESITY, UNSPECIFIED (10) Thrombocytopenia Current Visit: Yes Status: Chronic Assessment & Plan: - Platelets 97- trend - 2:2 Rectal CA with chemo and radiation treatment 02/17 - Platelets 85 - Will need to discuss with oncology tomorrow - monitor/ trend labs (11) Hypokalemia Current Visit: No Status: Acute Assessment & Plan: -resolved Code(s): E87.6 - HYPOKALEMIA (12) Chronic pain disorder Current Visit: No Status: Chronic Assessment & Plan: - Continue home pain meds - narcan PRN resp depression VTE: SCD's PPI: Protonix Next of KIN: Sally Aaron [phone] D/C plan: 2-3 days Code status: Full Code(s): G89.4 - CHRONIC PAIN SYNDROME
[2024-02-19 06:05] LABS: Hematocrit 26.2 % (34.1-44.9); Hemoglobin 8.5 g/dL (11.2-15.7); Mean Cell Volume 80.4 fL (79.4-94.8); Mean Corpuscular Hemoglobin 26.1 pg (25.6-32.2); Mean Corpuscular Hgb Concent. 32.4 g/dL (32.2-35.5); Mean Platelet Volume 9.5 fL (9.4-12.3); Platelet Count 67 x10^3/uL (182-369); Red Blood Count 3.26 x10^6/uL (3.93-5.22); Red Cell Distribution Width 17.5 % (11.7-14.4)
[2024-02-19 06:21] LABS: ALBUMIN 2.6 g/dL (3.5-5.0); ANION GAP 10.3 MEQ/L (5-15); BILIRUBIN,TOTAL 0.8 mg/dL (0.2-1.3); Calcium 7.6 mg/dL (8.4-10.2); Creatinine 1 2.14 mg/dL (0.52-1.04); EST GLOMERULAR FILTRATION RATE 26.4 ML/MIN; Potassium 3.3 mmol/L (3.5-5.1); Total Protein 5.3 g/dL (6.3-8.2)
[2024-02-19 06:39] LABS: Slide Review YES
[2024-02-19] MEDS: Klor Con PO SCH (07:56)
[2024-02-19 11:40] VITALS: O2SAT 94
--- NOTE | 2024-02-19 11:47 | PCM.DS ---
Discharge Summary Date of Admission: 02/14/24 23:44 Date of Discharge: 02/19/24 Admitting Physician: ALEJANDRO AKHTAR MD Consults: Consults on Case 02/15/24 07:32 Consult Nephrology ROUTINE Primary Care Provider: RICARDO MCGEE Allergies Allergies gentamicin [Gentamicin] Allergy (Severe, Verified 02/15/24 00:18) HEARING LOSS paroxetine HCl [From Paxil] Allergy (Intermediate, Verified 02/15/24 00:18) Hives oxaprozin [From Daypro] Allergy (Mild, Verified 02/15/24 00:18) Blisters oxcarbazepine [From Trileptal] Adverse Reaction (Intermediate, Verified 02/15/24 00:18) Nausea sitagliptin phosphate [From Januvia] Adverse Reaction (Intermediate, Verified 02/15/24 00:18) Stomach Cramps Hospital Summary - Hospital Course Hospital Course: is a 58 year old female with a pmhx of malignant melanoma (dx 11/04 on opdivo/yervoy, last dose 02/14/24, radiation x 5 performed at the end of November), chronic pain syndrome (follows Stephani Schwartz APPEALS RN), gastroesophageal reflux disease, hypertension, arthritis, degenerative disc disease, anxiety disorder and PTSD, and 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 She had also been experiencing suprapubic pressure, hematuria, pain, and urinary retention. UC negative. CT of the abdomen showed diffuse, worsening colitis, rectal mass, and lymphadenopathy. Patient received IP treatment with Zosyn for colitis. Hyponatremia was initially treated with IVF with no response. She received one dose of Samsca with no response. Patient was also found with acidosis. Patient developed FATOU. Nephrology consulted, Dr. Huntley, who recommended oral bicarb 1,300 TID, Lasix 20mg BID, and increase fluid restriction to 1500. Sodium levels remain low at 125, kidney function worsening now at 2.14>1.99>1.76>1.60>0.95 patient also with thrombocytopenia spoke with nephrology- serum osmo ordered on admission but is a send out (no results in yet) Teresa Billingsley and oncology Day Veliz - there is concern that her possibly her immunotherapy could be causing the hyponatremia although her cortisol level is elevated. Agree with specialist that patient should be transferred to obtain full work up. Plan for transfer today to [place] for higher level of specialty care. - Vitals & Intake/Output Vital Signs: Vital Signs Temperature 97.9 F 02/19/24 11:00 Pulse Rate 93 H 02/19/24 11:00 Respiratory Rate 16 02/19/24 11:00 Blood Pressure 142/62 02/19/24 11:00 O2 Sat by Pulse Oximetry 94 L 02/19/24 11:00 Intake & Output: Intake & Output 02/16/24 02/17/24 02/18/24 02/19/24 11:59 11:59 11:59 11:59 Intake Total 4247 620 650 980 Output Total 300 2900 1300 Balance 2217 -5236 -650 980 Weight 90.1 kg - Lab Result Diagrams: 02/19/24 05:55 02/19/24 10:20 Lab Results-Last 24 Hrs: Lab Results-Last 24 Hours 02/14/24 02/18/24 02/19/24 Range/Units 21:06 17:17 05:55 WBC 10.0 (3.98-10.04) x10^3/uL RBC 3.26 L (3.93-5.22) x10^6/uL Hgb 8.5 L (11.2-15.7) g/dL Hct 26.2 L (34.1-44.9) % MCV 80.4 (79.4-94.8) fL MCH 26.1 (25.6-32.2) pg MCHC 32.4 (32.2-35.5) g/dL RDW 17.5 H (11.7-14.4) % Plt Count 67 L (182-369) x10^3/uL MPV 9.5 (9.4-12.3) fL Sodium (135-145) mmol/L Potassium (3.5-5.1) mmol/L Chloride (98-107) mmol/L Carbon Dioxide (22-30) mmol/L Anion Gap (5-15) MEQ/L BUN (7-17) mg/dL Creatinine (0.52-1.04) mg/dL Estimated GFR ML/MIN Glucose (74-106) mg/dL Calcium (8.4-10.2) mg/dL Magnesium (1.6-2.3) mg/dL Total Bilirubin (0.2-1.3) mg/dL AST (14-36) U/L ALT (0-35) U/L Alkaline Phosphatase (38-126) U/L Serum Total Protein (6.3-8.2) g/dL Albumin (3.5-5.0) g/dL Urine Color Yellow (Yellow) Urine Appearance Clear (Clear) Urine pH 5.5 (4.6-8.0) Ur Specific [place] 1.015 (1.005-1.030) Urine Protein 300 A (Negative) Urine Glucose (UA) Negative (Negative) mg/dL Urine Ketones Negative (Negative) Urine Blood Large A (Negative) Urine Nitrite Negative (Negative) Urine Bilirubin Negative (Negative) Urine Urobilinogen 0.2 (0.2) mg/dL Ur Leukocyte Esterase Trace A (Negative) U Hyaline Cast (Auto) 3-5 A (0-2) /LPF Urine Microscopic RBC >100 A (0-5) /HPF Urine Microscopic WBC 6-10 A (0-5) /HPF Ur Epithelial Cells Few (None Seen) /HPF Urine Bacteria None Seen (None Seen) /HPF Urine Culture Reflexed YES (NO) Urine Osmolality 497 (.) mOsmol/kg Slides for Path Review YES 02/19/24 02/19/24 02/19/24 Range/Units 05:55 05:55 10:20 WBC (3.98-10.04) x10^3/uL RBC (3.93-5.22) x10^6/uL Hgb (11.2-15.7) g/dL Hct (34.1-44.9) % MCV (79.4-94.8) fL MCH (25.6-32.2) pg MCHC (32.2-35.5) g/dL RDW (11.7-14.4) % Plt Count (182-369) x10^3/uL MPV (9.4-12.3) fL Sodium 125 L (135-145) mmol/L Potassium 3.3 L 3.3 L (3.5-5.1) mmol/L Chloride 97 L (98-107) mmol/L Carbon Dioxide 20 L (22-30) mmol/L Anion Gap 10.3 (5-15) MEQ/L BUN 27 H (7-17) mg/dL Creatinine 2.14 H (0.52-1.04) mg/dL Estimated GFR 26.4 ML/MIN Glucose 113 H (74-106) mg/dL Calcium 7.6 L (8.4-10.2) mg/dL Magnesium 1.7 (1.6-2.3) mg/dL Total Bilirubin 0.80 (0.2-1.3) mg/dL AST 31 (14-36) U/L ALT 20 (0-35) U/L Alkaline Phosphatase 151 H (38-126) U/L Serum Total Protein 5.3 L (6.3-8.2) g/dL Albumin 2.6 L (3.5-5.0) g/dL Urine Color (Yellow) Urine Appearance (Clear) Urine pH (4.6-8.0) Ur Specific [place] (1.005-1.030) Urine Protein (Negative) Urine Glucose (UA) (Negative) mg/dL Urine Ketones (Negative) Urine Blood (Negative) Urine Nitrite (Negative) Urine Bilirubin (Negative) Urine Urobilinogen (0.2) mg/dL Ur Leukocyte Esterase (Negative) U Hyaline Cast (Auto) (0-2) /LPF Urine Microscopic RBC (0-5) /HPF Urine Microscopic WBC (0-5) /HPF Ur Epithelial Cells (None Seen) /HPF Urine Bacteria (None Seen) /HPF Urine Culture Reflexed (NO) Urine Osmolality (.) mOsmol/kg Slides for Path Review Micro Results-Entire Visit: Microbiology 02/18/24 17:17 Urine Culture - Preliminary Clean Catch Midstream NO GROWTH TO DATE 02/14/24 21:06 Urine Culture - Final Clean Catch Midstream NO GROWTH Discharge Exam General Appearance: no apparent distress Neurologic Exam: alert, oriented x 3, cooperative Eye Exam: PERRL Ears, Nose, Throat Exam: normal ENT inspection Neck Exam: normal inspection Respiratory Exam: normal breath sounds, lungs clear Cardiovascular Exam: regular rate/rhythm, normal heart sounds Gastrointestinal/Abdomen Exam: soft, normal bowel sounds Pelvic Exam: deferred Rectal Exam: deferred Back Exam: normal inspection Extremity Exam: pedal edema (BLE +2 pitting), swelling Skin Exam: pale Final Diagnosis/Problem List - Final Discharge Diagnosis/Problem (1) Hyponatremia Current Visit: Yes Status: Acute Code(s): E87.1 - HYPO-OSMOLALITY AND HYPONATREMIA (2) UTI (urinary tract infection) Current Visit: Yes Status: Resolved Code(s): N39.0 - URINARY TRACT INFECTION, SITE NOT SPECIFIED (3) FATOU (acute kidney injury) Current Visit: Yes Status: Acute Code(s): N17.9 - ACUTE KIDNEY FAILURE, UNSPECIFIED (4) Rectal cancer Current Visit: Yes Status: Acute Code(s): C20 - MALIGNANT NEOPLASM OF RECTUM (5) Colitis Current Visit: Yes Status: Acute Code(s): K52.9 - NONINFECTIVE GASTROENTERITIS AND COLITIS, UNSPECIFIED (6) Gross hematuria Current Visit: Yes Status: Acute (7) Suprapubic abdominal pain Current Visit: Yes Status: Acute Code(s): R10.2 - PELVIC AND PERINEAL PAIN (8) Deaf Current Visit: Yes Status: Chronic Code(s): H91.90 - UNSPECIFIED HEARING LOSS, UNSPECIFIED EAR (9) Obesity (BMI 30-39.9) Current Visit: Yes Status: Chronic Code(s): E66.9 - OBESITY, UNSPECIFIED (10) Thrombocytopenia Current Visit: Yes Status: Chronic (11) Hypokalemia Current Visit: No Status: Acute Code(s): E87.6 - HYPOKALEMIA (12) Chronic pain disorder Current Visit: No Status: Chronic Code(s): G89.4 - CHRONIC PAIN SYNDROME - Discharge Disposition: DC TO [facility] Condition: Stable Prescriptions: New Hydromorphone 1 mg/1Ml Inj [Hydromorphone 1 mg/ml Injection] 1 mg IV Q4H PRN PRN PRN Reason: Pain Potassium Chloride Tab* [Klor Con] 20 meq PO Q2H tablet Furosemide 20 mg/2 ml [Lasix 20 MG/2 ML] 20 mg IV BID DIURETIC Morphine Sulfate Cr 15 mg [Ms Contin 15 MG] 45 mg PO BID tablet Naloxone HCl 0.4 mg/ml [Narcan 0.4 MG/ML] 0.4 mg IV PRN PRN PRN Reason: Respiratory Depression Piperacillin/Tazobactam [Piperacillin/Tazobactam 2.25 GM] 2.25 gm IV Q6HT Pantoprazole 40 mg [Protonix 40 mg IV] 40 mg IV BID Sodium Bicarbonate 1,300 mg PO TID tablet Calcium Carbonate 750 mg [Tums EX 750 MG] 750 mg PO BID tablet Acetaminophen 325 mg [Tylenol 325 mg] 650 mg PO Q4H PRN PRN tablet PRN Reason: Pain, Fever, Headache Ondansetron HCl 4 mg/2 ml [Zofran 4 MG/2 ML VIAL] 4 mg IV Q6H PRN PRN PRN Reason: Nausea/Vomiting Continue Ergocalciferol (Vitamin D2) [Vitamin D2] 1,250 mcg PO WEEKLY Cyclobenzaprine HCl 10 mg [Cyclobenzaprine 10 MG] 10 mg PO BID Tramadol HCl 50 mg [Ultram 50 mg] 50 mg PO Q8HPRN PRN PRN Reason: Pain fentaNYL [Duragesic 12MCG Patch] 24 mcg TOP Q72H Morphine Sulfate [Morphine Sulfate ER] 45 mg PO BID Omeprazole 40 mg PO DAILY Topiramate 100 mg [Topamax 100 MG] 100 mg PO BID Follow up with: RICARDO MCGEE [Primary Care Provider] - 02/23/24 8:45 am CARLEY SEE [COURTESY STAFF] - Office will call patient
[2024-02-19 18:38] LABS: ALBUMIN 2.5 g/dL (3.5-5.0); ANION GAP 9.7 MEQ/L (5-15); BILIRUBIN,TOTAL 0.6 mg/dL (0.2-1.3); Calcium 7.7 mg/dL (8.4-10.2); Creatinine 1 2.21 mg/dL (0.52-1.04); EST GLOMERULAR FILTRATION RATE 25.4 ML/MIN; Potassium 3.7 mmol/L (3.5-5.1); Total Protein 5.3 g/dL (6.3-8.2)
[2024-02-19 19:16] VITALS: BP 133/74; PULSE 96; TEMP 97.5
[2024-02-19 20:08] VITALS: RESP 18
[2024-02-21] MEDS ORDERED: VITAMIN D2 PO SCH (10:00)
== END 2024-02-19 22:28 | disposition home or self-care (01) | DRG 641 ==
LOC: ED 20:24 → MED SURG 23:44
PROVIDERS: ADMIT Internal Medicine; ATTEND Internal Medicine
DX: E87.1 Hypo-osmolality and hyponatremia (principal); N39.0 Urinary tract infection, site not specified; N17.9 Acute kidney failure, unspecified; C20 Malignant neoplasm of rectum; K52.9 Noninfective gastroenteritis and colitis, unspecified; R31.0 Gross hematuria; R10.2 Pelvic and perineal pain; H91.90 Unspecified hearing loss, unspecified ear; E66.9 Obesity, unspecified; D69.6 Thrombocytopenia, unspecified; E87.6 Hypokalemia; G89.4 Chronic pain syndrome; R60.0 Localized edema; Z79.899 Other long term (current) drug therapy
CPT/HCPCS: 36415; 74176; 76770; 80048; 80053; 81001; 82533; 83735; 83935; 84132; 84133; 84300; 84443; 85025; 85027; 87086; 87493; 96365; 96374; 96375; 99285; Q3014; J0696; J1170; J1940; J2270; J2405; J2543; J3480; A9270-GY